=== PATIENT | female | born 1970 | race Caucasian/White ===

== ENCOUNTER 2017-04-06 19:51 | Inpatient (IN) | payer MEDICARE, OTHER ==
[~2017-04-06] VITALS: Ht 172.7 cm; Wt 128.4 kg
[2017-04-06 20:41] LABS: BASO # 0.1 x10^3/uL (0.0-0.2); BASO % 1 % (0-3); EOS % 1 % (0-3); HEMATOCRIT 39.2 % (36.0-47.0); HEMOGLOBIN 13.5 g/dL (12.0-15.5); LYMPH # 3.6 x10^3/uL (1.0-4.8); LYMPH % 37 % (24-48); MEAN CORPUSCULAR HEMOGLOBIN 29 pg (25-35); MEAN CORPUSCULAR HGB CONC 35 g/dL (31-37); MEAN CORPUSCULAR VOLUME 85 fL (79-100); MONO % 6 % (0-9); NEUT % 56 % (31-73); PLATELET COUNT 290 x10^3/uL (140-400); RED BLOOD COUNT 4.63 x10^6/uL (3.50-5.40); RED CELL DISTRIBUTION WIDTH 13.2 % (11.5-14.5)
[2017-04-06 20:51] LABS: CALCIUM 9.3 mg/dL (8.5-10.1); CREATININE 0.9 mg/dL (0.6-1.0); POTASSIUM 3.4 mmol/L (3.5-5.1)
[2017-04-06 20:57] LABS: ALBUMIN 3.5 g/dL (3.4-5.0); ALBUMIN/GLOBULIN RATIO 0.8 (1.0-1.7); C-REACTIVE PROTEIN 7.4 mg/L (0-3.3); TOTAL BILIRUBIN 0.4 mg/dL (0.2-1.0); TOTAL PROTEIN 7.7 g/dL (6.4-8.2)
[2017-04-06] MEDS: fentaNYL PF VIAL 100 MCG/2 ML VIAL IV PRN ×3 (21:02→22:43)
--- NOTE | 2017-04-06 21:51 | PHYS DOC ---
Past Medical History Past Medical History: Endometriosis, Fibromyalgia, IBS, Migraines, Other Additional Past Medical Histor: vernell, chronic fatigue,chronic pain synd.,non- epilepticevents,gastroparesis, Past Surgical History: Cholecystectomy, Hysterectomy Additional Past Surgical Histo: addl med hx;plantar facia, surg:parapesphageal& heital hernia repair,shoulde Alcohol Use: None Drug Use: None Adult General Chief Complaint Chief Complaint: BACK PAIN - NO INJURY HPI HPI Patient is a 46 year old female who is sent to the ED by Dr. Helton, her physician at [place]. The patient is having worsening intractable back pain. She is in a wheelchair from back pain. He has been trying outpatient pain management and physical therapy and is not getting anywhere with that. He tells me that her pain and disability is getting worse. He had considered trying to get her into inpatient rehabilitation of some sort but they will not take her directly, she needs to be a medical inpatient first. History from the patient and her : is retired . Patient states that her chronic back pain has kept her pretty much in bed for a year and a half. It's been worse for about the last 6 weeks. It's been attributed to muscle spasm. She has had home health and home physical therapy but she just cannot cooperate with any rehabilitation. She states she cannot even put on her underwear. She has had worsening fatigue and weakness. She has seen Dr. Shoemaker, pain management, and had her first round of "pre-shots" on the right side and is scheduled for another first round of pre-injections on the left side. The patient has been seen at the [facility] 3 times. She did complete an outpatient 21 day pain program through the [facility]. She's been diagnosed with "chronic pain syndrome, fibromyalgia" also has a seizure disorder, her seizures affect her speech and her right leg. Patient is not aware of anything that happened to cause her to have worsening over the past 6 weeks. She does use fentanyl patches for pain. PCP Dr. Helton at [facility] Review of Systems Review of Systems Constitutional: Denies fever or chills [] Eyes: Denies change in visual acuity, redness, or eye pain [] HENT: Denies nasal congestion or sore throat [] Respiratory: Denies cough or shortness of breath [] Cardiovascular: Denies chest pain GI: Denies abdominal pain, nausea, vomiting, bloody stools or diarrhea [] : Denies dysuria or hematuria [] Musculoskeletal: As in history of present illness Integument: Denies rash or skin lesions [] Neurologic: As in history of present illness for history of seizure disorder Current Medications Current Medications Current Medications Medications (Trade) Dose Ordered Sig/Cindy Start Time Stop Time Status Last Admin Dose Admin Fentanyl Citrate (Fentanyl 2ml Vial) 50 mcg PRN Q15MIN PRN 04/06/17 20:45 04/07/17 20:44 04/06/17 21:38 50 MCG Allergies Allergies Allergies Coded Allergies Type Severity Reaction Last Updated Verified Sulfa (Sulfonamide Antibiotics) Allergy Unknown 04/06/17 Yes codeine Allergy Unknown 04/06/17 Yes eletriptan Allergy Unknown 04/06/17 Yes iohexol Allergy Unknown 04/06/17 Yes levofloxacin Allergy Unknown 04/06/17 Yes meperidine Allergy Unknown 04/06/17 Yes methadone Allergy Unknown 04/06/17 Yes metoclopramide Allergy Unknown 04/06/17 Yes tizanidine Allergy Unknown 04/06/17 Yes topiramate Allergy Unknown 04/06/17 Yes tramadol Allergy Unknown 04/06/17 Yes triamcinolone Allergy Unknown 04/06/17 Yes Uncoded Allergies Type Severity Reaction Last Updated Verified anesthetics Adverse Reaction Severe 04/06/17 Physical Exam Physical Exam Constitutional: Obese female, alert, mentating normally, normal speech, appears to be very uncomfortable, she is able to sit up on the cart for me to look at her back HENT: Normocephalic, atraumatic, bilateral external ears normal, nose normal. [] Eyes: conjunctiva normal, no discharge. [] Neck: Normal range of motion, no tenderness, supple, no stridor. [] Cardiovascular:Heart rate regular rhythm, no murmur [] Lungs & Thorax: Bilateral breath sounds clear to auscultation [] Abdomen: Bowel sounds normal, soft, no tenderness, no masses, no pulsatile masses. [] Skin: Warm, dry, no erythema, no rash. [] Back: No tenderness, no CVA tenderness. No skin abnormality. No palpable muscle spasm or deformity. Extremities: No tenderness, no cyanosis, no clubbing, ROM intact, no edema. [] Neurologic: Alert and oriented X 3, normal motor function, normal sensory function, no focal deficits noted. [] Current Patient Data Vital Signs Vital Signs Date Time Temp Pulse Resp B/P (MAP) Pulse Ox O2 Delivery O2 Flow Rate FiO2 04/06/17 21:38 16 96 Room Air 04/06/17 21:37 85 159/96 (117) 04/06/17 19:59 98.7 98.7 Lab Values Laboratory Tests Test 04/06/17 20:10 White Blood Count 10.0 x10^3/uL (4.0-11.0) Red Blood Count 4.63 x10^6/uL (3.50-5.40) Hemoglobin 13.5 g/dL (12.0-15.5) Hematocrit 39.2 % (36.0-47.0) Mean Corpuscular Volume 85 fL (79-100) Mean Corpuscular Hemoglobin 29 pg (25-35) Mean Corpuscular Hemoglobin Concent 35 g/dL (31-37) Red Cell Distribution Width 13.2 % (11.5-14.5) Platelet Count 290 x10^3/uL (140-400) Neutrophils (%) (Auto) 56 % (31-73) Lymphocytes (%) (Auto) 37 % (24-48) Monocytes (%) (Auto) 6 % (0-9) Eosinophils (%) (Auto) 1 % (0-3) Basophils (%) (Auto) 1 % (0-3) Neutrophils # (Auto) 5.6 x10^3uL (1.8-7.7) Lymphocytes # (Auto) 3.6 x10^3/uL (1.0-4.8) Monocytes # (Auto) 0.6 x10^3/uL (0.0-1.1) Eosinophils # (Auto) 0.1 x10^3/uL (0.0-0.7) Basophils # (Auto) 0.1 x10^3/uL (0.0-0.2) Erythrocyte Sedimentation Rate 26 (0-25) H Sodium Level 141 mmol/L (136-145) Potassium Level 3.4 mmol/L (3.5-5.1) L Chloride Level 104 mmol/L (98-107) Carbon Dioxide Level 29 mmol/L (21-32) Anion Gap 8 (6-14) Blood Urea Nitrogen 11 mg/dL (7-20) Creatinine 0.9 mg/dL (0.6-1.0) Estimated GFR (Cockcroft-Gault) 68.0 BUN/Creatinine Ratio 12 (6-20) Glucose Level 98 mg/dL (70-99) Calcium Level 9.3 mg/dL (8.5-10.1) Total Bilirubin 0.4 mg/dL (0.2-1.0) Aspartate Amino Transferase (AST) 38 U/L (15-37) H Alanine Aminotransferase (ALT) 81 U/L (14-59) H Alkaline Phosphatase 111 U/L (46-116) C-Reactive Protein, Quantitative 7.4 mg/L (0-3.3) H Total Protein 7.7 g/dL (6.4-8.2) Albumin 3.5 g/dL (3.4-5.0) Albumin/Globulin Ratio 0.8 (1.0-1.7) L Laboratory Tests 04/06/17 20:10 Laboratory Tests 04/06/17 20:10 EKG EKG [] Radiology/Procedures Radiology/Procedures I did review the results of MRI from July 2016 that is essentially negative for acute findings, I did not order imaging on today's visit [] Course & Med Decision Making Course & Med Decision Making Pertinent Labs and Imaging studies reviewed. (See chart for details) 46-year-old lady with a long history of debilitating back pain states she has been pretty much in bed for a urinary half but is actually worse for the last 6 weeks. She was sent by her primary care doctor with the specific request to admit her to the hospital to make sure that she is fully evaluated in terms of pain management, imaging, possibly neurology, and then see if she can be placed in inpatient rehabilitation. Patient and her understand and agree with this plan. I ordered labs and pain medication. I spoke with Dr. bernal, [facility], who will admit the patient. I wrote bridge orders. [] Dragon Disclaimer Dragon Disclaimer This electronic medical record was generated, in whole or in part, using a voice recognition dictation system. Departure Departure Impression: Primary Impression: Intractable back pain Disposition: ADMITTED INPATIENT Admitting Physician: Suki Bernal Condition: STABLE Referrals: NO PCP (PCP) JERED LANDAVERDE MD April 06, 2017 21:51
--- NOTE | 2017-04-06 22:22 | ACF ---
Admission Forms Criteria BACK PAIN Clinical Indications for Admission to Inpatient Care (Place 'X' for any and all applicable criteria): Admission is indicated for ANY ONE of the following (1)(2)(3)(4)(5)(6): [X ]I. Inpatient admission required rather than observation care (Also use Back Pain: Observation Care as appropriate) because of ANY ONE of the following [X ]a) Severe pain requiring acute inpatient management [ ]b) Immediate inpatient surgery [ ]c) Other condition, treatment or monitoring requiring inpatient admission [ ]II. Spine fracture with significant damage or threat of damage to vertebral column or spinal cord [ ]III. Progressive or severe neurologic deficit [ ]IV. Suspected spinal infection (e.g., epidural abscess, vertebral osteomyelitis)(10) [ ]V. Suspected cause requires inpatient treatment (eg, aortic dissection) [ ]. Cauda equina syndrome as indicated by ANY ONE of the following (9): [ ]a) Bowel dysfunction [ ]b) Bladder dysfunction [ ]c) Saddle anesthesia [ ]d) Neurologic abnormality suggesting cauda equina impingement Extended stay beyond goal length of stay may be needed for (3)(25): [ ]a) Spinal cord compression from stenosis, disk, or tumor (8)(9) [ ]b) Traumatic or pathologic vertebral fracture (33) [ ]c) Vertebral infection(10) [ ]d) Severe pain that is difficult to control [ ]e) Older patients(65 years or older) The original [facility] content created by [employer] has been revised. The portions of the content which have been revised are identified through the use of italic text or in bold, and [facility] has neither reviewed nor approved the modified material. All other unmodified content is copyright [facility]. Please see references footnoted in the original [facility] edition 2016 Admission Criteria Met?: Yes NISHANT MAHMOOD April 06, 2017 22:22
[2017-04-06] MEDS ORDERED: diphenhydrAMINE HCL 25 MG CAPSULE PO PRN (22:45)
[2017-04-06] MEDS ORDERED: SUMAtriptan SUCCINATE 25 MG TABLET PO PRN (22:45)
--- NOTE | 2017-04-06 22:50 | PDOC1 ---
History and Physical Date of Admission Date of Admission DATE: 04/06/17 TIME: 22:41 Identification/Chief Complaint Chief Complaint back pain Problems: Source Source: Chart review, Patient History of Present Illness History of Present Illness Ms. Almanza is a 46 year old female who is sent to the ED by Dr. Helton, her physician at [place]. She is accompanied here by her and school-age child. Admit for intractable back pain, in a wheelchair at home, and has gotten worse with home PT and OT. Pain has been getting worse, she cannot do ADLs now. She reports multiple prior w/u for autoimmune and connective tissue disease, all neg, w/u X2 in [place], and she has been to the [facility]. She was in the FM and pain progam there, 21 day program years ago, where all meds are weaned off and aggressive PT and OT, and she did feel better for a time , but now has worsening pain and remarks that she feels she has "slid back" marked weight gain, and new problems with headaches, prior seizures. Pain was 9/10, then s/p 2 IV fentanyl is 3/10 and her reports this is the best she has looked in a long while. is retired . Patient states that her chronic back pain, and muscle spasm. no fentanyl patch forpain Past Medical History Cardiovascular: No pertinent hx Pulmonary: No pertinent hx CENTRAL NERVOUS SYSTEM: Migraine, Seizure Musculoskeletal: low back pain, Osteoarthritis, Swelling, Stiffness Rheumatologic: Fibromyalgia ENT: No pertinent hx Renal/: No pertinent hx Endocrine: No pertinent hx Family History Family History: No Significant Social History Smoke: No ALCOHOL: none Drugs: None Current Medications Current Medications Current Medications Fentanyl Citrate (Fentanyl 2ml Vial) 50 mcg PRN Q15MIN PRN IV PAIN GREATER THAN 3/10 Last administered on 04/06/17t 21:38; Start 04/06/17 at 20:45; Stop at 23:59 Fentanyl Citrate (Fentanyl 2ml Vial) 50 mcg PRN Q2HR PRN IV PAIN; Start at 22:45; Status UNV Gabapentin (Neurontin) 1,200 mg BID PO ; Start 04/07/17 at 09:00; Status UNV Oxycodone HCl (Roxicodone) 5 mg PRN Q6HRS PRN PO PAIN; Start 04/06/17 at 22:45 ; Status UNV Potassium Chloride (Klor-Con) 20 meq 1X ONCE PO ; Start 04/06/17 at 22:45; Stop 04/06/17 at 22:46; Status UNV Potassium Chloride (Klor-Con) 20 meq DAILYWBKFT PO ; Start 04/07/17 at 08:00; Status UNV Magnesium Sulfate/ Dextrose 50 ml @ 25 mls/hr 1X ONCE IV ; Start 04/06/17 at 22 :45; Stop 04/07/17 at 00:44; Status UNV Allergies Allergies: Coded Allergies: Sulfa (Sulfonamide Antibiotics) (Verified Allergy, Unknown, 04/06/17) codeine (Verified Allergy, Unknown, 04/06/17) disoriented, vomiting eletriptan (Verified Allergy, Unknown, 04/06/17) cp, pressure in throat weakness in arms iohexol (Verified Allergy, Unknown, 04/06/17) swelling in throat, chest tightness levofloxacin (Verified Allergy, Unknown, 04/06/17) severe joint pain, severe swelling, weight gain 40 lbs in 2.5 months meperidine (Verified Allergy, Unknown, 04/06/17) forget to breath methadone (Verified Allergy, Unknown, 04/06/17) cp, in and out of conscienceness, disorietation metoclopramide (Verified Allergy, Unknown, 04/06/17) difficutly breathing, cp tizanidine (Verified Allergy, Unknown, 04/06/17) disorientatin, instability topiramate (Verified Allergy, Unknown, 04/06/17) severe neuropathy tramadol (Verified Allergy, Unknown, 04/06/17) interferes with sleep, nausea triamcinolone (Verified Allergy, Unknown, 04/06/17) muscle deterioration Uncoded Allergies: anesthetics (Adverse Reaction, Severe, 04/06/17) stop breathing, when monitorad and caution used oxygen and nausea med have done fine ROS General: YES: Fatigue, Malaise, Appetite, Other, No: Chills, Night Sweats PSYCHOLOGICAL ROS: YES: Irritablity, Sleep disturbances Eyes: No Blurry vision, No Decreased vision, No Double vision, No Dry eyes, No Excessive tearing, No Eye Pain, No Itchy Eyes, No Loss of vision, No Photophobia , No Scotomata, No Uses contacts, No Uses glasses, No Other HEENT: YES: Heacaches, No: Visual Changes, Hearing change, Nasal congestion, Nasal discharge, Oral lesions, Sinus pain, Sore Throat, Epistaxis, Sneezing, Snoring, Tinnitus, Vertigo, Vocal changes, Other Respiratory: No: Cough, Hemoptysis, Orthopnea, Pleuritic Pain, Shortness of breath, SOB with excertion, Sputum Changes, Stridor, Tachypnea, Wheezing, Other Cardiovascular: No Chest Pain, No Palpitations, No Orthopnea, No Paroxysmal Noc. Dyspnea, No Edema, No Lt Headedness, No Other Gastrointestinal: No Nausea, No Vomiting, No Abdominal Pain, No Diarrhea, No Constipation, No Melena, No Hematochezia, No Other Genitourinary: No Dysuria, No Frequency, No Incontinence, No Hematuria, No Retention, No Discharge, No Urgency, No Pain, No Flank Pain, No Other, No , No , No , No , No , No , No Musculoskeletal: Yes Gait Disturbance, Yes Joint Pain, Yes Joint Stiffness, Yes Joint Swelling, Yes Muscle Pain, Yes Muscular Weakness, Yes Pain In:, No Swelling In:, No Other Neurological: Yes Gait Disturbance, Yes Headaches, No Behavorial Changes, No Bowel/Bladder ControlChng, No Confusion, No Dizziness, No Impaired Coord/balance, No Memory Loss, No Numbness/Tingling, No Seizures, No Speech Problems, No Tremors, No Visual Changes, No Weakness, No Other Skin: No Dry Skin, No Eczema, No Hair Changes, No Lumps, No Mole Changes, No Mottling, No Nail Changes, No Pruritus, No Rash, No Skin Lesion Changes, No Other, No Acne Physical Exam General: Alert, Oriented X3, Cooperative, mild distress, moderate distress HEENT: Atraumatic, PERRLA, EOMI, Mucous membr. moist/pink Lungs: Clear to auscultation, Normal air movement Heart: S1S2, no gallops, no murmurs Abdomen: Normal bowel sounds, Soft (obese) Rectal Exam: not examined Extremities: No clubbing, No cyanosis Skin: No breakdown, No significant lesion, Other (erythematous arms and face) Neuro: Normal tone, Sensation intact, Cranial nerves 3-12 NL Psych/Mental Status: Mood NL, Other Vitals Vitals Vital Signs Date Time Temp Pulse Resp B/P (MAP) Pulse Ox O2 Delivery O2 Flow Rate FiO2 04/06/17 21:38 16 96 Room Air 04/06/17 21:37 85 159/96 (117) 04/06/17 19:59 98.7 98.7 Labs Labs Laboratory Tests Test 04/06/17 20:10 White Blood Count 10.0 x10^3/uL (4.0-11.0) Red Blood Count 4.63 x10^6/uL (3.50-5.40) Hemoglobin 13.5 g/dL (12.0-15.5) Hematocrit 39.2 % (36.0-47.0) Mean Corpuscular Volume 85 fL (79-100) Mean Corpuscular Hemoglobin 29 pg (25-35) Mean Corpuscular Hemoglobin Concent 35 g/dL (31-37) Red Cell Distribution Width 13.2 % (11.5-14.5) Platelet Count 290 x10^3/uL (140-400) Neutrophils (%) (Auto) 56 % (31-73) Lymphocytes (%) (Auto) 37 % (24-48) Monocytes (%) (Auto) 6 % (0-9) Eosinophils (%) (Auto) 1 % (0-3) Basophils (%) (Auto) 1 % (0-3) Neutrophils # (Auto) 5.6 x10^3uL (1.8-7.7) Lymphocytes # (Auto) 3.6 x10^3/uL (1.0-4.8) Monocytes # (Auto) 0.6 x10^3/uL (0.0-1.1) Eosinophils # (Auto) 0.1 x10^3/uL (0.0-0.7) Basophils # (Auto) 0.1 x10^3/uL (0.0-0.2) Erythrocyte Sedimentation Rate 26 (0-25) Sodium Level 141 mmol/L (136-145) Potassium Level 3.4 mmol/L (3.5-5.1) Chloride Level 104 mmol/L (98-107) Carbon Dioxide Level 29 mmol/L (21-32) Anion Gap 8 (6-14) Blood Urea Nitrogen 11 mg/dL (7-20) Creatinine 0.9 mg/dL (0.6-1.0) Estimated GFR (Cockcroft-Gault) 68.0 BUN/Creatinine Ratio 12 (6-20) Glucose Level 98 mg/dL (70-99) Calcium Level 9.3 mg/dL (8.5-10.1) Total Bilirubin 0.4 mg/dL (0.2-1.0) Aspartate Amino Transf (AST/SGOT) 38 U/L (15-37) Alanine Aminotransferase (ALT/SGPT) 81 U/L (14-59) Alkaline Phosphatase 111 U/L (46-116) C-Reactive Protein, Quantitative 7.4 mg/L (0-3.3) Total Protein 7.7 g/dL (6.4-8.2) Albumin 3.5 g/dL (3.4-5.0) Albumin/Globulin Ratio 0.8 (1.0-1.7) Laboratory Tests Test 04/06/17 20:10 White Blood Count 10.0 x10^3/uL (4.0-11.0) Red Blood Count 4.63 x10^6/uL (3.50-5.40) Hemoglobin 13.5 g/dL (12.0-15.5) Hematocrit 39.2 % (36.0-47.0) Mean Corpuscular Volume 85 fL (79-100) Mean Corpuscular Hemoglobin 29 pg (25-35) Mean Corpuscular Hemoglobin Concent 35 g/dL (31-37) Red Cell Distribution Width 13.2 % (11.5-14.5) Platelet Count 290 x10^3/uL (140-400) Neutrophils (%) (Auto) 56 % (31-73) Lymphocytes (%) (Auto) 37 % (24-48) Monocytes (%) (Auto) 6 % (0-9) Eosinophils (%) (Auto) 1 % (0-3) Basophils (%) (Auto) 1 % (0-3) Neutrophils # (Auto) 5.6 x10^3uL (1.8-7.7) Lymphocytes # (Auto) 3.6 x10^3/uL (1.0-4.8) Monocytes # (Auto) 0.6 x10^3/uL (0.0-1.1) Eosinophils # (Auto) 0.1 x10^3/uL (0.0-0.7) Basophils # (Auto) 0.1 x10^3/uL (0.0-0.2) Erythrocyte Sedimentation Rate 26 (0-25) Sodium Level 141 mmol/L (136-145) Potassium Level 3.4 mmol/L (3.5-5.1) Chloride Level 104 mmol/L (98-107) Carbon Dioxide Level 29 mmol/L (21-32) Anion Gap 8 (6-14) Blood Urea Nitrogen 11 mg/dL (7-20) Creatinine 0.9 mg/dL (0.6-1.0) Estimated GFR (Cockcroft-Gault) 68.0 BUN/Creatinine Ratio 12 (6-20) Glucose Level 98 mg/dL (70-99) Calcium Level 9.3 mg/dL (8.5-10.1) Total Bilirubin 0.4 mg/dL (0.2-1.0) Aspartate Amino Transf (AST/SGOT) 38 U/L (15-37) Alanine Aminotransferase (ALT/SGPT) 81 U/L (14-59) Alkaline Phosphatase 111 U/L (46-116) C-Reactive Protein, Quantitative 7.4 mg/L (0-3.3) Total Protein 7.7 g/dL (6.4-8.2) Albumin 3.5 g/dL (3.4-5.0) Albumin/Globulin Ratio 0.8 (1.0-1.7) VTE Prophylaxis Ordered VTE Prophylaxis Devices: Yes VTE Pharmacological Prophylaxi: No Assessment/Plan Assessment/Plan back pain, debilitating, cannot do ADLs fibromyalgia acute on chronic pain syndrome NOS headache, reports migrane GERBER and seizure do morbid obesity, BMI 43 hypokalemia admit HAIDER SALMON MD April 06, 2017 22:50
[2017-04-06 23:00] VITALS: BP 148/102
[2017-04-06] MEDS ORDERED: MAGNESIUM SULFATE 2GM 50 ML IV ONE (23:00)
[2017-04-06] MEDS ORDERED: POTASSIUM CHLORIDE 20 MEQ TABLET.ER. PO ONE (23:00)
[2017-04-06] MEDS: ZOLPIDEM 5 MG TABLET. PO PRN (23:14)
[2017-04-07] MEDS ORDERED: CELE200C PO (00:07)
[2017-04-07] MEDS ORDERED: ASPI-482 PO (00:07)
[2017-04-07] MEDS ORDERED: CETI10TA22 PO (00:07)
[2017-04-07] MEDS ORDERED: CLON1TAB PO (00:07)
[2017-04-07] MEDS ORDERED: HYDR25TA PO (00:07)
[2017-04-07] MEDS ORDERED: CALC-95 PO (00:07)
[2017-04-07] MEDS ORDERED: ZOLP12.52 PO (00:07)
[2017-04-07] MEDS ORDERED: METH-37 PO (00:07)
[2017-04-07] MEDS ORDERED: ONDA4TAB7 PO (00:07)
[2017-04-07] MEDS ORDERED: DEXT20TA2 PO (00:07)
[2017-04-07] MEDS ORDERED: MELA5CAP PO (00:07)
[2017-04-07] MEDS ORDERED: DOCU-27 PO (00:07)
[2017-04-07] MEDS ORDERED: ATOR10TA PO (00:07)
[2017-04-07] MEDS ORDERED: GABA600T2 PO (00:07)
[2017-04-07] MEDS ORDERED: ESOM40CA PO (00:07)
[2017-04-07] MEDS ORDERED: VERA240C2 PO (00:07)
[2017-04-07] MEDS ORDERED: VENL150C PO (00:07)
[2017-04-07] MEDS ORDERED: CHOL100017 PO (00:07)
[2017-04-07] MEDS ORDERED: LEVO50TA5 PO (00:07)
[2017-04-07] MEDS ORDERED: LEVE100020 PO (00:07)
[2017-04-07] MEDS ORDERED: PENT100C PO (00:07)
[2017-04-07] MEDS ORDERED: LINA290C PO (00:07)
[2017-04-07] MEDS ORDERED: RANI300T3 PO (00:07)
[2017-04-07] MEDS ORDERED: RISP0.5T18 PO (00:07)
[2017-04-07] MEDS ORDERED: FENT1PAT19 TP (00:07)
[2017-04-07] MEDS: fentaNYL PF VIAL 100 MCG/2 ML VIAL IV PRN ×7 (02:20→20:29)
[2017-04-07 03:00] VITALS: BP_SYST 129; BP_SYST 130; BP_DIAS 61; BP_DIAS 81
[2017-04-07 07:00] VITALS: BP 120/75
[2017-04-07] MEDS: GABAPENTIN 400 MG CAPSULE. PO SCH ×2 (08:13→20:35)
[2017-04-07] MEDS: ENOXAPARIN 40 MG/0.4 ML SYRINGE. SQ SCH ×2 (08:14→20:39)
[2017-04-07] MEDS: POTASSIUM CHLORIDE 20 MEQ TABLET.ER. PO SCH (08:14)
[2017-04-07] MEDS ORDERED: ENOXAPARIN 40 MG/0.4 ML SYRINGE. SQ SCH (09:00)
[2017-04-07] MEDS ORDERED: NON FORMULARY ITEM (Melatonin 10 MG) PO PRN (09:30)
[2017-04-07] MEDS ORDERED: clonazePAM 1 MG TABLET PO PRN (09:30)
[2017-04-07] MEDS ORDERED: ONDANSETRON ODT 4 MG TAB.RAPDIS. PO PRN (09:45)
[2017-04-07] MEDS ORDERED: hydrOXYzine 10 MG TABLET PO PRN (09:45)
[2017-04-07] MEDS: PANTOPRAZOLE 40 MG TABLET.DR. PO SCH (09:47)
[2017-04-07] MEDS: LEVOTHYROXINE 50 MCG TABLET PO SCH (09:48)
[2017-04-07] MEDS: VENLAFAXINE 50 MG TABLET. PO SCH ×3 (09:54→20:36)
[2017-04-07] MEDS: CALCIUM CARB/VIT D3 500/200 TABLET. PO SCH (09:54)
[2017-04-07] MEDS: CELECOXIB 200 MG CAPSULE. PO SCH (09:54)
[2017-04-07] MEDS: FAMOTIDINE 20 MG TABLET. PO SCH (09:54)
[2017-04-07] MEDS: LINACLOTIDE 145 MCG CAPSULE. PO SCH (09:54)
[2017-04-07] MEDS ORDERED: CETIRIZINE HCL 10 MG TABLET. PO SCH (10:00)
[2017-04-07] MEDS ORDERED: PANTOPRAZOLE 40 MG TABLET.DR. PO SCH (10:00)
[2017-04-07] MEDS ORDERED: ASPIRIN ENTERIC COATED 81 MG TABLET.DR. PO SCH (10:00)
--- NOTE | 2017-04-07 10:57 | PDOC ---
PROGRESS NOTES Chief Complaint Chief Complaint cc: back pain A/P Acute on chronic back pain: on Fentanyl patch, controlled, PT/OT Dr Sanjay clarke, consult Dr Lobo Migraines: Not controlled, continue home regimen, consult Neurology CHRIS,: on CPAP HTN Obesity. History of Present Illness History of Present Illness pain 06/30, not controlled, Vitals Vitals Vital Signs Date Time Temp Pulse Resp B/P (MAP) Pulse Ox O2 Delivery O2 Flow Rate FiO2 04/07/17 08:50 Room Air 04/07/17 07:00 97.9 89 20 120/75 (90) 95 97.9 Physical Exam General: Alert, Oriented X3, Cooperative, mild distress, moderate distress, Other (obese.) Heart: Normal S1, Normal S2 Lungs: Clear Abdomen: Normal bowel sounds, Soft (obese) Extremities: No clubbing, No cyanosis Skin: No breakdown, No significant lesion, Other (erythematous arms and face) Labs LABS Laboratory Tests Test 04/06/17 20:10 White Blood Count 10.0 x10^3/uL (4.0-11.0) Red Blood Count 4.63 x10^6/uL (3.50-5.40) Hemoglobin 13.5 g/dL (12.0-15.5) Hematocrit 39.2 % (36.0-47.0) Mean Corpuscular Volume 85 fL (79-100) Mean Corpuscular Hemoglobin 29 pg (25-35) Mean Corpuscular Hemoglobin Concent 35 g/dL (31-37) Red Cell Distribution Width 13.2 % (11.5-14.5) Platelet Count 290 x10^3/uL (140-400) Neutrophils (%) (Auto) 56 % (31-73) Lymphocytes (%) (Auto) 37 % (24-48) Monocytes (%) (Auto) 6 % (0-9) Eosinophils (%) (Auto) 1 % (0-3) Basophils (%) (Auto) 1 % (0-3) Neutrophils # (Auto) 5.6 x10^3uL (1.8-7.7) Lymphocytes # (Auto) 3.6 x10^3/uL (1.0-4.8) Monocytes # (Auto) 0.6 x10^3/uL (0.0-1.1) Eosinophils # (Auto) 0.1 x10^3/uL (0.0-0.7) Basophils # (Auto) 0.1 x10^3/uL (0.0-0.2) Erythrocyte Sedimentation Rate 26 (0-25) Sodium Level 141 mmol/L (136-145) Potassium Level 3.4 mmol/L (3.5-5.1) Chloride Level 104 mmol/L (98-107) Carbon Dioxide Level 29 mmol/L (21-32) Anion Gap 8 (6-14) Blood Urea Nitrogen 11 mg/dL (7-20) Creatinine 0.9 mg/dL (0.6-1.0) Estimated GFR (Cockcroft-Gault) 68.0 BUN/Creatinine Ratio 12 (6-20) Glucose Level 98 mg/dL (70-99) Calcium Level 9.3 mg/dL (8.5-10.1) Total Bilirubin 0.4 mg/dL (0.2-1.0) Aspartate Amino Transf (AST/SGOT) 38 U/L (15-37) Alanine Aminotransferase (ALT/SGPT) 81 U/L (14-59) Alkaline Phosphatase 111 U/L (46-116) C-Reactive Protein, Quantitative 7.4 mg/L (0-3.3) Total Protein 7.7 g/dL (6.4-8.2) Albumin 3.5 g/dL (3.4-5.0) Albumin/Globulin Ratio 0.8 (1.0-1.7) Comment Review of Relevant I have reviewed the following items mohsen (where applicable) has been applied. Labs Laboratory Tests Test 04/06/17 20:10 White Blood Count 10.0 x10^3/uL (4.0-11.0) Red Blood Count 4.63 x10^6/uL (3.50-5.40) Hemoglobin 13.5 g/dL (12.0-15.5) Hematocrit 39.2 % (36.0-47.0) Mean Corpuscular Volume 85 fL (79-100) Mean Corpuscular Hemoglobin 29 pg (25-35) Mean Corpuscular Hemoglobin Concent 35 g/dL (31-37) Red Cell Distribution Width 13.2 % (11.5-14.5) Platelet Count 290 x10^3/uL (140-400) Neutrophils (%) (Auto) 56 % (31-73) Lymphocytes (%) (Auto) 37 % (24-48) Monocytes (%) (Auto) 6 % (0-9) Eosinophils (%) (Auto) 1 % (0-3) Basophils (%) (Auto) 1 % (0-3) Neutrophils # (Auto) 5.6 x10^3uL (1.8-7.7) Lymphocytes # (Auto) 3.6 x10^3/uL (1.0-4.8) Monocytes # (Auto) 0.6 x10^3/uL (0.0-1.1) Eosinophils # (Auto) 0.1 x10^3/uL (0.0-0.7) Basophils # (Auto) 0.1 x10^3/uL (0.0-0.2) Erythrocyte Sedimentation Rate 26 (0-25) Sodium Level 141 mmol/L (136-145) Potassium Level 3.4 mmol/L (3.5-5.1) Chloride Level 104 mmol/L (98-107) Carbon Dioxide Level 29 mmol/L (21-32) Anion Gap 8 (6-14) Blood Urea Nitrogen 11 mg/dL (7-20) Creatinine 0.9 mg/dL (0.6-1.0) Estimated GFR (Cockcroft-Gault) 68.0 BUN/Creatinine Ratio 12 (6-20) Glucose Level 98 mg/dL (70-99) Calcium Level 9.3 mg/dL (8.5-10.1) Total Bilirubin 0.4 mg/dL (0.2-1.0) Aspartate Amino Transf (AST/SGOT) 38 U/L (15-37) Alanine Aminotransferase (ALT/SGPT) 81 U/L (14-59) Alkaline Phosphatase 111 U/L (46-116) C-Reactive Protein, Quantitative 7.4 mg/L (0-3.3) Total Protein 7.7 g/dL (6.4-8.2) Albumin 3.5 g/dL (3.4-5.0) Albumin/Globulin Ratio 0.8 (1.0-1.7) Laboratory Tests Test 04/06/17 20:10 White Blood Count 10.0 x10^3/uL (4.0-11.0) Red Blood Count 4.63 x10^6/uL (3.50-5.40) Hemoglobin 13.5 g/dL (12.0-15.5) Hematocrit 39.2 % (36.0-47.0) Mean Corpuscular Volume 85 fL (79-100) Mean Corpuscular Hemoglobin 29 pg (25-35) Mean Corpuscular Hemoglobin Concent 35 g/dL (31-37) Red Cell Distribution Width 13.2 % (11.5-14.5) Platelet Count 290 x10^3/uL (140-400) Neutrophils (%) (Auto) 56 % (31-73) Lymphocytes (%) (Auto) 37 % (24-48) Monocytes (%) (Auto) 6 % (0-9) Eosinophils (%) (Auto) 1 % (0-3) Basophils (%) (Auto) 1 % (0-3) Neutrophils # (Auto) 5.6 x10^3uL (1.8-7.7) Lymphocytes # (Auto) 3.6 x10^3/uL (1.0-4.8) Monocytes # (Auto) 0.6 x10^3/uL (0.0-1.1) Eosinophils # (Auto) 0.1 x10^3/uL (0.0-0.7) Basophils # (Auto) 0.1 x10^3/uL (0.0-0.2) Erythrocyte Sedimentation Rate 26 (0-25) Sodium Level 141 mmol/L (136-145) Potassium Level 3.4 mmol/L (3.5-5.1) Chloride Level 104 mmol/L (98-107) Carbon Dioxide Level 29 mmol/L (21-32) Anion Gap 8 (6-14) Blood Urea Nitrogen 11 mg/dL (7-20) Creatinine 0.9 mg/dL (0.6-1.0) Estimated GFR (Cockcroft-Gault) 68.0 BUN/Creatinine Ratio 12 (6-20) Glucose Level 98 mg/dL (70-99) Calcium Level 9.3 mg/dL (8.5-10.1) Total Bilirubin 0.4 mg/dL (0.2-1.0) Aspartate Amino Transf (AST/SGOT) 38 U/L (15-37) Alanine Aminotransferase (ALT/SGPT) 81 U/L (14-59) Alkaline Phosphatase 111 U/L (46-116) C-Reactive Protein, Quantitative 7.4 mg/L (0-3.3) Total Protein 7.7 g/dL (6.4-8.2) Albumin 3.5 g/dL (3.4-5.0) Albumin/Globulin Ratio 0.8 (1.0-1.7) Medications Current Medications Fentanyl Citrate (Fentanyl 2ml Vial) 50 mcg PRN Q15MIN PRN IV PAIN GREATER THAN 3/10 Last administered on 04/06/17 22:43; Start 04/06/17 at 20:45; Stop at 23:59 Fentanyl Citrate (Fentanyl 2ml Vial) 50 mcg PRN Q2HR PRN IV PAIN Last administered on 04/07/17 08:15; Start 04/06/17 at 22:45 Gabapentin (Neurontin) 1,200 mg BID PO Last administered on 04/07/17 08:13; Start 04/07/17 at 09:00 Oxycodone HCl (Roxicodone) 5 mg PRN Q6HRS PRN PO PAIN; Start 04/06/17 at 22:45 Potassium Chloride (Klor-Con) 20 meq 1X ONCE PO Last administered on 23:15; Start 04/06/17 at 23:00; Stop 04/06/17 at 23:01; Status DC Potassium Chloride (Klor-Con) 20 meq DAILYWBKFT PO Last administered on 08:14; Start 04/07/17 at 08:00 Magnesium Sulfate/ Dextrose 50 ml @ 25 mls/hr 1X ONCE IV Last administered on 04/06/17 23:32; Start 04/06/17 at 23:00; Stop 04/07/17 at 00:59; Status DC Diphenhydramine HCl (Benadryl) 25 mg PRN Q6HRS PRN PO ITCHING; Start 04/06/17 at 22:45 Zolpidem Tartrate (Ambien) 5 mg PRN QHS PRN PO INSOMNIA Last administered on 23:14; Start 04/06/17 at 22:45 Enoxaparin Sodium (Lovenox Per Pharmacy Prophylaxis Dosing) 1 each PRN DAILY PRN MC SEE COMMENTS; Start 04/06/17 at 23:00 Sumatriptan Succinate (Imitrex) 50 mg PRN Q2HR PRN PO MIGRAINE HEADACHE Last administered on 04/07/17 09:27; Start 04/06/17 at 22:45 Cyclobenzaprine HCl (Flexeril) 10 mg PRN Q6HRS PRN PO MUSCLE SPASMS; Start at 22:45 Enoxaparin Sodium (Lovenox 40mg Syringe) 40 mg DAILY SQ ; Start 04/07/17 at 09: 00; Stop 04/07/17 at 09:00; Status DC Enoxaparin Sodium (Lovenox 40mg Syringe) 40 mg Q12HR SQ Last administered on 08:14; Start 04/07/17 at 09:00 Aspirin (Ecotrin) 81 mg DAILYWBKFT PO ; Start 04/07/17 at 10:00; Stop 04/07/17 at 10:03; Status DC Atorvastatin Calcium (Lipitor) 10 mg QHS PO ; Start 04/07/17 at 21:00 Calcium/Vitamin D (Oscal D 500mg/ 200uts) 1 tab DAILY PO Last administered on 09:54; Start 04/07/17 at 10:00 Celecoxib (CeleBREX) 200 mg DAILY PO Last administered on 04/07/17 09:54; Start 04/07/17 at 10:00 Cetirizine HCl (ZyrTEC) 10 mg DAILY PO ; Start 04/07/17 at 10:00; Stop 04/07/17 at 10:03; Status DC Clonazepam (KlonoPIN) 1 mg TID PRN PO ANXIETY; Start 04/07/17 at 09:30 Docusate Sodium (Colace) 100 mg TID PRN PRN PO CONSTIPATION; Start 04/07/17 at 09:30 Fentanyl (Duragesic 75mcg/ Hr Patch) 1 patch Q3DAYS TD ; Start 04/08/17 at 09:00 Levothyroxine Sodium (Synthroid) 50 mcg DAILY07 PO ; Start 04/07/17 at 10:00 Methocarbamol (Robaxin) 500 mg Q8HRS PRN PO PAIN; Start 04/07/17 at 09:30 Non-Formulary Medication 1 ea TID PO ; Start 04/07/17 at 11:00 Non-Formulary Medication 20 mg DAILY PO ; Start 04/08/17 at 09:00; Status UNV Pantoprazole Sodium (Protonix) 40 mg DAILYAC PO ; Start 04/07/17 at 10:00; Stop 04/07/17 at 10:00; Status DC Hydroxyzine HCl (Atarax) 25 mg PRN TID PRN PO ITCHING; Start 04/07/17 at 09:45 Levetiracetam (Keppra) 1,000 mg BID PO ; Start 04/07/17 at 10:30 Linaclotide (Linzess) 290 mcg DAILY07 PO Last administered on 04/07/17 09:54; Start 04/07/17 at 10:00 Non-Formulary Medication 10 mg HS PRN PO INSOMNIA; Start 04/07/17 at 09:30; Status UNV Ondansetron HCl (Zofran Odt) 4 mg PRN Q8HRS PRN PO NAUSEA; Start 04/07/17 at 09 :45 Famotidine (Pepcid) 20 mg DAILY06 PO Last administered on 04/07/17 09:54; Start 04/07/17 at 10:00 Risperidone (RisperDAL) 0.5 mg QHS PO ; Start 04/07/17 at 21:00 Venlafaxine HCl (Effexor) 50 mg TID PO Last administered on 04/07/17 09:54; Start 04/07/17 at 09:45 Verapamil HCl (Calan Sr) 180 mg QHS PO ; Start 04/07/17 at 21:00 Zolpidem Tartrate (Ambien) 5 mg QHS PO ; Start 04/07/17 at 21:00 Pantoprazole Sodium (Protonix) 40 mg DAILY06 PO ; Start 04/07/17 at 10:00 Aspirin (Ecotrin) 81 mg HS PO ; Start 04/07/17 at 21:00 Cetirizine HCl (ZyrTEC) 10 mg HS PO ; Start 04/07/17 at 21:00 Active Scripts Active Reported Oyster Shell Calcium +D Tablet (Calcium Carbonate/Vitamin D3) 1 Each Tablet 1 Each PO DAILY Lipitor (Atorvastatin Calcium) 10 Mg Tablet 1 Tab PO DAILY Adderall 20 Mg Tablet (Dextroamphetamine/Amphetamine) 20 Mg Tablet 20 Mg PO DAILY Effexor Xr (Venlafaxine Hcl) 150 Mg Cap.er.24h 1 Cap PO DAILY Celebrex (Celecoxib) 200 Mg Capsule 1 Cap PO DAILY Zofran (Ondansetron Hcl) 4 Mg Tablet 1 Tab PO TID PRN PRN Linzess (Linaclotide) 290 Mcg Capsule 290 Mcg PO DAILY Zyrtec (Cetirizine Hcl) 10 Mg Tablet 1 Tab PO DAILY Vitamin D (Cholecalciferol (Vitamin D3)) 10,000 Unit Capsule 50,000 Unit PO QWE Verapamil Er (Verapamil Hcl) 240 Mg Cap24h.pel 180 Mg PO HS Aspir 81 (Aspirin) 81 Mg Tablet.dr 1 Tab PO DAILY Klonopin (Clonazepam) 1 Mg Tablet 1 Tab PO TID PRN Hydroxyzine Hcl 25 Mg Tablet 25 Mg PO Q8HRS PRN Risperdal (Risperidone) 0.5 Mg Tablet 1 Tab PO QHS Ambien Cr (Zolpidem Tartrate) 12.5 Mg Tab.mphase 1 Tab PO QHS Levothyroxine Sodium 50 Mcg Tablet 1 Tab PO DAILY Keppra (Levetiracetam) 1,000 Mg Tablet 2,000 Mg PO DAILY Melatonin 5 Mg Capsule 10 Mg PO HS PRN FENTANYL 75mcg/hr (Fentanyl) 1 Each Patch.td72 1 Patch TP Q3DAYS Colace (Docusate Sodium) 100 Mg Capsule 1 Cap PO TID PRN PRN Robaxin (Methocarbamol) 500 Mg Tablet 1 Tab PO Q8HRS PRN Gabapentin 600 Mg Tablet 1,200 Mg PO BID Zantac (Ranitidine Hcl) 300 Mg Tablet 300 Mg PO DAILY06 Nexium Capsule (Esomeprazole Magnesium) 40 Mg Capsule.dr 1 Cap PO DAILY06 Elmiron (Pentosan Polysulfate Sodium) 100 Mg Capsule 1 Cap PO TID Vitals/I & O Vital Sign - Last 24 Hours 04/06/17 04/06/17 04/06/17 04/06/17 19:59 21:02 21:37 21:38 Temp 98.7 98.7 Pulse 98 85 Resp 18 20 16 16 B/P (MAP) 158/93 (114) 159/96 (117) Pulse Ox 97 95 96 96 O2 Delivery Room Air Room Air Room Air 04/06/17 04/06/17 04/06/17 04/06/17 22:30 22:43 23:00 23:15 Temp 98.4 98.4 Pulse 92 108 Resp 18 20 18 20 B/P (MAP) 163/87 (112) 148/102 (117) Pulse Ox 95 97 96 O2 Delivery Room Air Room Air Room Air Room Air 04/06/17 04/07/17 04/07/17 04/07/17 23:15 02:20 03:00 05:07 Temp 97.7 97.7 Pulse 93 Resp 20 18 20 B/P (MAP) 130/81 (97) Pulse Ox 95 O2 Delivery Room Air BiPAP/CPAP 04/07/17 04/07/17 04/07/17 04/07/17 05:40 07:00 07:35 08:15 Temp 97.9 97.9 Pulse 89 Resp 16 20 B/P (MAP) 120/75 (90) Pulse Ox 95 O2 Delivery Room Air Room Air Room Air 04/07/17 08:50 O2 Delivery Room Air Intake and Output 04/06/17 04/06/17 04/07/17 15:00 23:00 07:00 Intake Total 400 ml Balance 400 ml ARTURO CISSE MD April 07, 2017 10:57
[2017-04-07 11:00] VITALS: BP 137/78
[2017-04-07] MEDS: ELMIRON 100 MG PO SCH ×3 (11:17→20:32)
[2017-04-07] MEDS: levETIRAcetam 500 MG TABLET PO SCH ×2 (11:17→20:41)
--- NOTE | 2017-04-07 14:28 | PDOC ---
SUBJECTIVE Subjective low back pain OBJECTIVE Objective 46yo female with history of increasing low back pain Vital Signs Vital Signs Date Time Temp Pulse Resp B/P (MAP) Pulse Ox O2 Delivery O2 Flow Rate FiO2 04/07/17 11:50 Room Air 04/07/17 11:18 95 Room Air 04/07/17 11:00 98.0 93 20 137/78 (97) 95 Room Air 98.0 04/07/17 08:15 Room Air 04/07/17 07:35 Room Air 04/07/17 07:00 97.9 89 20 120/75 (90) 95 Room Air 97.9 04/07/17 05:40 16 04/07/17 05:07 20 04/07/17 03:00 97.7 93 18 130/81 (97) 95 BiPAP/CPAP 97.7 04/07/17 02:20 20 04/06/17 23:15 Room Air 04/06/17 23:15 20 Room Air 04/06/17 23:00 98.4 108 18 148/102 (117) 96 Room Air 98.4 04/06/17 22:43 20 97 Room Air 04/06/17 22:30 92 18 163/87 (112) 95 Room Air 04/06/17 21:38 16 96 Room Air 04/06/17 21:37 85 16 159/96 (117) 96 Room Air 04/06/17 21:02 20 95 Room Air 04/06/17 19:59 98.7 98 18 158/93 (114) 97 98.7 I & O Intake and Output 04/07/17 07:01 Intake Total 400 ml Balance 400 ml Intake Oral 400 ml # Voids 2 ASSESSMENT/PLAN Assessment/Plan 46y.o. female with history of low back pain, increasing with inability to perform ADL's MRI 07/2016 noted- minimal DDD L5 Pt. reports she is undergoing current treatment with Dr. Patel in [place] and has had lumbar medial branch/facet treatment- and has discussed RFA as possibilty as well- F/U with Dr. Patel as scheduled. Pt. expresses wishes to attend "rehab" for her lumbar spine, as she has done well with aggressive physical rehab in past. Pt. reports significant improvement with IV fentanyl -May consider [employer] Fentanyl as IP (8-10mcg q 8 min, with no basal rate) Problems: COMMENT Lab Laboratory Tests Test 04/06/17 20:10 White Blood Count 10.0 x10^3/uL (4.0-11.0) Red Blood Count 4.63 x10^6/uL (3.50-5.40) Hemoglobin 13.5 g/dL (12.0-15.5) Hematocrit 39.2 % (36.0-47.0) Mean Corpuscular Volume 85 fL (79-100) Mean Corpuscular Hemoglobin 29 pg (25-35) Mean Corpuscular Hemoglobin Concent 35 g/dL (31-37) Red Cell Distribution Width 13.2 % (11.5-14.5) Platelet Count 290 x10^3/uL (140-400) Neutrophils (%) (Auto) 56 % (31-73) Lymphocytes (%) (Auto) 37 % (24-48) Monocytes (%) (Auto) 6 % (0-9) Eosinophils (%) (Auto) 1 % (0-3) Basophils (%) (Auto) 1 % (0-3) Neutrophils # (Auto) 5.6 x10^3uL (1.8-7.7) Lymphocytes # (Auto) 3.6 x10^3/uL (1.0-4.8) Monocytes # (Auto) 0.6 x10^3/uL (0.0-1.1) Eosinophils # (Auto) 0.1 x10^3/uL (0.0-0.7) Basophils # (Auto) 0.1 x10^3/uL (0.0-0.2) Erythrocyte Sedimentation Rate 26 (0-25) Sodium Level 141 mmol/L (136-145) Potassium Level 3.4 mmol/L (3.5-5.1) Chloride Level 104 mmol/L (98-107) Carbon Dioxide Level 29 mmol/L (21-32) Anion Gap 8 (6-14) Blood Urea Nitrogen 11 mg/dL (7-20) Creatinine 0.9 mg/dL (0.6-1.0) Estimated GFR (Cockcroft-Gault) 68.0 BUN/Creatinine Ratio 12 (6-20) Glucose Level 98 mg/dL (70-99) Calcium Level 9.3 mg/dL (8.5-10.1) Total Bilirubin 0.4 mg/dL (0.2-1.0) Aspartate Amino Transf (AST/SGOT) 38 U/L (15-37) Alanine Aminotransferase (ALT/SGPT) 81 U/L (14-59) Alkaline Phosphatase 111 U/L (46-116) C-Reactive Protein, Quantitative 7.4 mg/L (0-3.3) Total Protein 7.7 g/dL (6.4-8.2) Albumin 3.5 g/dL (3.4-5.0) Albumin/Globulin Ratio 0.8 (1.0-1.7) LALO KAY MD April 07, 2017 14:27
[2017-04-07 14:41] VITALS: BP 157/97
--- NOTE | 2017-04-07 14:56 | PDOC2 ---
NEUROLOGY CONSULT Date of Admission Date of Admission DATE: 04/07/17 TIME: 14:50 Reason for Consult Reason for Consult: Headaches Referring Physician Referring Physician: Dr. Bernal PCP: Dr. Helton Source Source: Chart review, Patient History of Present Illness History of Present Illness The patient is a 46-year-old right-handed female with a long history of migraine headaches. She describes throbbing pain with photo phonophobia and nausea. She says that she has been bedfast for a year and a half because of severe back pain. No surgical lesion has been found. She has been diagnosed at the [facility] with fibromyalgia. There is no history of stroke, seizure, or head injury. She received 50 mg of sumatriptan today and says her headache is better, 03/30 Past Medical History Cardiovascular: HTN Pulmonary: Other (obstructive sleep apnea) CENTRAL NERVOUS SYSTEM: Migraine, Seizure (nonepileptic) GI: Constipation, GERD, Irritable bowel disease, Other (gastroparesis, hiatal hernia, nausea) Psych: Depression Musculoskeletal: low back pain Rheumatologic: Fibromyalgia Renal/: Other (endometriosis) Endocrine: Hypothyroidism Past Surgical History Past Surgical History: Cholecystectomy, Hernia Repair (hiatal), Hysterectomy Family History Family History: Cancer Social History Social History , no tobacco or alcohol Current Medications Current Medications Current Medications Fentanyl Citrate (Fentanyl 2ml Vial) 50 mcg PRN Q15MIN PRN IV PAIN GREATER THAN 3/10 Last administered on 04/06/17 22:43; Start 04/06/17 at 20:45; Stop at 23:59 Fentanyl Citrate (Fentanyl 2ml Vial) 50 mcg PRN Q2HR PRN IV PAIN Last administered on 04/07/17 11:18; Start 04/06/17 at 22:45 Gabapentin (Neurontin) 1,200 mg BID PO Last administered on 04/07/17 08:13; Start 04/07/17 at 09:00 Oxycodone HCl (Roxicodone) 5 mg PRN Q6HRS PRN PO PAIN; Start 04/06/17 at 22:45 Potassium Chloride (Klor-Con) 20 meq 1X ONCE PO Last administered on 23:15; Start 04/06/17 at 23:00; Stop 04/06/17 at 23:01; Status DC Potassium Chloride (Klor-Con) 20 meq DAILYWBKFT PO Last administered on 08:14; Start 04/07/17 at 08:00 Magnesium Sulfate/ Dextrose 50 ml @ 25 mls/hr 1X ONCE IV Last administered on 04/06/17 23:32; Start 04/06/17 at 23:00; Stop 04/07/17 at 00:59; Status DC Diphenhydramine HCl (Benadryl) 25 mg PRN Q6HRS PRN PO ITCHING; Start 04/06/17 at 22:45 Zolpidem Tartrate (Ambien) 5 mg PRN QHS PRN PO INSOMNIA Last administered on 23:14; Start 04/06/17 at 22:45 Enoxaparin Sodium (Lovenox Per Pharmacy Prophylaxis Dosing) 1 each PRN DAILY PRN MC SEE COMMENTS; Start 04/06/17 at 23:00 Sumatriptan Succinate (Imitrex) 50 mg PRN Q2HR PRN PO MIGRAINE HEADACHE Last administered on 04/07/17 09:27; Start 04/06/17 at 22:45 Cyclobenzaprine HCl (Flexeril) 10 mg PRN Q6HRS PRN PO MUSCLE SPASMS; Start at 22:45 Enoxaparin Sodium (Lovenox 40mg Syringe) 40 mg DAILY SQ ; Start 04/07/17 at 09: 00; Stop 04/07/17 at 09:00; Status DC Enoxaparin Sodium (Lovenox 40mg Syringe) 40 mg Q12HR SQ Last administered on 08:14; Start 04/07/17 at 09:00 Aspirin (Ecotrin) 81 mg DAILYWBKFT PO ; Start 04/07/17 at 10:00; Stop 04/07/17 at 10:03; Status DC Atorvastatin Calcium (Lipitor) 10 mg QHS PO ; Start 04/07/17 at 21:00 Calcium/Vitamin D (Oscal D 500mg/ 200uts) 1 tab DAILY PO Last administered on 09:54; Start 04/07/17 at 10:00 Celecoxib (CeleBREX) 200 mg DAILY PO Last administered on 04/07/17 09:54; Start 04/07/17 at 10:00 Cetirizine HCl (ZyrTEC) 10 mg DAILY PO ; Start 04/07/17 at 10:00; Stop 04/07/17 at 10:03; Status DC Clonazepam (KlonoPIN) 1 mg TID PRN PO ANXIETY; Start 04/07/17 at 09:30 Docusate Sodium (Colace) 100 mg TID PRN PRN PO CONSTIPATION; Start 04/07/17 at 09:30 Fentanyl (Duragesic 75mcg/ Hr Patch) 1 patch Q3DAYS TD ; Start 04/08/17 at 09:00 Levothyroxine Sodium (Synthroid) 50 mcg DAILY07 PO ; Start 04/07/17 at 10:00 Methocarbamol (Robaxin) 500 mg Q8HRS PRN PO PAIN; Start 04/07/17 at 09:30 Non-Formulary Medication 1 ea TID PO Last administered on 04/07/17 11:17; Start 04/07/17 at 11:00 Non-Formulary Medication 20 mg DAILY PO ; Start 04/08/17 at 09:00; Status UNV Pantoprazole Sodium (Protonix) 40 mg DAILYAC PO ; Start 04/07/17 at 10:00; Stop 04/07/17 at 10:00; Status DC Hydroxyzine HCl (Atarax) 25 mg PRN TID PRN PO ITCHING; Start 04/07/17 at 09:45 Levetiracetam (Keppra) 1,000 mg BID PO Last administered on 04/07/17 11:17; Start 04/07/17 at 10:30 Linaclotide (Linzess) 290 mcg DAILY07 PO Last administered on 04/07/17 09:54; Start 04/07/17 at 10:00 Non-Formulary Medication 10 mg HS PRN PO INSOMNIA; Start 04/07/17 at 09:30; Status UNV Ondansetron HCl (Zofran Odt) 4 mg PRN Q8HRS PRN PO NAUSEA; Start 04/07/17 at 09 :45 Famotidine (Pepcid) 20 mg DAILY06 PO Last administered on 04/07/17 09:54; Start 04/07/17 at 10:00 Risperidone (RisperDAL) 0.5 mg QHS PO ; Start 04/07/17 at 21:00 Venlafaxine HCl (Effexor) 50 mg TID PO Last administered on 04/07/17t 09:54; Start 04/07/17 at 09:45 Verapamil HCl (Calan Sr) 180 mg QHS PO ; Start 04/07/17 at 21:00 Zolpidem Tartrate (Ambien) 5 mg QHS PO ; Start 04/07/17 at 21:00 Pantoprazole Sodium (Protonix) 40 mg DAILY06 PO ; Start 04/07/17 at 10:00 Aspirin (Ecotrin) 81 mg HS PO ; Start 04/07/17 at 21:00 Cetirizine HCl (ZyrTEC) 10 mg HS PO ; Start 04/07/17 at 21:00 Active Scripts Active Reported Oyster Shell Calcium +D Tablet (Calcium Carbonate/Vitamin D3) 1 Each Tablet 1 Each PO DAILY Lipitor (Atorvastatin Calcium) 10 Mg Tablet 1 Tab PO DAILY Adderall 20 Mg Tablet (Dextroamphetamine/Amphetamine) 20 Mg Tablet 20 Mg PO DAILY Effexor Xr (Venlafaxine Hcl) 150 Mg Cap.er.24h 1 Cap PO DAILY Celebrex (Celecoxib) 200 Mg Capsule 1 Cap PO DAILY Zofran (Ondansetron Hcl) 4 Mg Tablet 1 Tab PO TID PRN PRN Linzess (Linaclotide) 290 Mcg Capsule 290 Mcg PO DAILY Zyrtec (Cetirizine Hcl) 10 Mg Tablet 1 Tab PO DAILY Vitamin D (Cholecalciferol (Vitamin D3)) 10,000 Unit Capsule 50,000 Unit PO QWE Verapamil Er (Verapamil Hcl) 240 Mg Cap24h.pel 180 Mg PO HS Aspir 81 (Aspirin) 81 Mg Tablet.dr 1 Tab PO DAILY Klonopin (Clonazepam) 1 Mg Tablet 1 Tab PO TID PRN Hydroxyzine Hcl 25 Mg Tablet 25 Mg PO Q8HRS PRN Risperdal (Risperidone) 0.5 Mg Tablet 1 Tab PO QHS Ambien Cr (Zolpidem Tartrate) 12.5 Mg Tab.mphase 1 Tab PO QHS Levothyroxine Sodium 50 Mcg Tablet 1 Tab PO DAILY Keppra (Levetiracetam) 1,000 Mg Tablet 2,000 Mg PO DAILY Melatonin 5 Mg Capsule 10 Mg PO HS PRN FENTANYL 75mcg/hr (Fentanyl) 1 Each Patch.td72 1 Patch TP Q3DAYS Colace (Docusate Sodium) 100 Mg Capsule 1 Cap PO TID PRN PRN Robaxin (Methocarbamol) 500 Mg Tablet 1 Tab PO Q8HRS PRN Gabapentin 600 Mg Tablet 1,200 Mg PO BID Zantac (Ranitidine Hcl) 300 Mg Tablet 300 Mg PO DAILY06 Nexium Capsule (Esomeprazole Magnesium) 40 Mg Capsule.dr 1 Cap PO DAILY06 Elmiron (Pentosan Polysulfate Sodium) 100 Mg Capsule 1 Cap PO TID Allergies Allergies: Coded Allergies: Sulfa (Sulfonamide Antibiotics) (Verified Allergy, Unknown, 04/06/17) codeine (Verified Allergy, Unknown, 04/06/17) disoriented, vomiting eletriptan (Verified Allergy, Unknown, 04/06/17) cp, pressure in throat weakness in arms iohexol (Verified Allergy, Unknown, 04/06/17) swelling in throat, chest tightness levofloxacin (Verified Allergy, Unknown, 04/06/17) severe joint pain, severe swelling, weight gain 40 lbs in 2.5 months meperidine (Verified Allergy, Unknown, 04/06/17) forget to breath methadone (Verified Allergy, Unknown, 04/06/17) cp, in and out of conscienceness, disorietation metoclopramide (Verified Allergy, Unknown, 04/06/17) difficutly breathing, cp tizanidine (Verified Allergy, Unknown, 04/06/17) disorientatin, instability topiramate (Verified Allergy, Unknown, 04/06/17) severe neuropathy tramadol (Verified Allergy, Unknown, 04/06/17) interferes with sleep, nausea triamcinolone (Verified Allergy, Unknown, 04/06/17) muscle deterioration Uncoded Allergies: anesthetics (Adverse Reaction, Severe, 04/06/17) stop breathing, when monitorad and caution used oxygen and nausea med have done fine ROS Review of System Patient denies fevers, chills, weight loss, dyspnea, angina, abdominal pain, change in bowels, or dysuria. 14 point review of systems is negative. Physical Exam Physical Examination PHYSICAL EXAMINATION: Vital signs: see above. General appearance is normal and in no acute distress. She is asleep when I enter the room HEENT: Normocephalic and nontraumatic. Eyes, nose, ears, and throat are unremarkable. Neck is supple. No lymphadenopathy. No bruits are heard over the carotid artery. No crepitus. NEUROLOGICAL EXAMINATION: Mental Status Examination: Alert. Oriented to time, place, and person. Answers questions and follows commends. Pupils are equal round and reactive to light and accommodation. Funduscopic exam: No papilledema. Extraocular movements are intact. Visual field exam shows no defect on the direct confrontation. No motor or sensory deficits on the facial exam. Uvula in the midline and the soft palate elevated symmetrically. No deviation of the tongue to any direction. Gross hearing is normal. Shoulder shrug normal. Muscle tone is normal. Muscle strength is 5. Deep tendon reflexes are 2+ all around. Plantar reflex is with flexion response bilaterally. Kouhyx-pa-rehf test performance is accurate. Alternative movements are accurate. Gait not tested. Sensory exam shows no deficits. No cerebellar signs are elicited. Vitals VITALS Vital Signs Date Time Temp Pulse Resp B/P (MAP) Pulse Ox O2 Delivery O2 Flow Rate FiO2 04/07/17 14:41 97.8 90 20 157/97 (117) 96 Room Air 97.8 Labs Labs Laboratory Tests Test 04/06/17 20:10 White Blood Count 10.0 x10^3/uL (4.0-11.0) Red Blood Count 4.63 x10^6/uL (3.50-5.40) Hemoglobin 13.5 g/dL (12.0-15.5) Hematocrit 39.2 % (36.0-47.0) Mean Corpuscular Volume 85 fL (79-100) Mean Corpuscular Hemoglobin 29 pg (25-35) Mean Corpuscular Hemoglobin Concent 35 g/dL (31-37) Red Cell Distribution Width 13.2 % (11.5-14.5) Platelet Count 290 x10^3/uL (140-400) Neutrophils (%) (Auto) 56 % (31-73) Lymphocytes (%) (Auto) 37 % (24-48) Monocytes (%) (Auto) 6 % (0-9) Eosinophils (%) (Auto) 1 % (0-3) Basophils (%) (Auto) 1 % (0-3) Neutrophils # (Auto) 5.6 x10^3uL (1.8-7.7) Lymphocytes # (Auto) 3.6 x10^3/uL (1.0-4.8) Monocytes # (Auto) 0.6 x10^3/uL (0.0-1.1) Eosinophils # (Auto) 0.1 x10^3/uL (0.0-0.7) Basophils # (Auto) 0.1 x10^3/uL (0.0-0.2) Erythrocyte Sedimentation Rate 26 (0-25) Sodium Level 141 mmol/L (136-145) Potassium Level 3.4 mmol/L (3.5-5.1) Chloride Level 104 mmol/L (98-107) Carbon Dioxide Level 29 mmol/L (21-32) Anion Gap 8 (6-14) Blood Urea Nitrogen 11 mg/dL (7-20) Creatinine 0.9 mg/dL (0.6-1.0) Estimated GFR (Cockcroft-Gault) 68.0 BUN/Creatinine Ratio 12 (6-20) Glucose Level 98 mg/dL (70-99) Calcium Level 9.3 mg/dL (8.5-10.1) Total Bilirubin 0.4 mg/dL (0.2-1.0) Aspartate Amino Transf (AST/SGOT) 38 U/L (15-37) Alanine Aminotransferase (ALT/SGPT) 81 U/L (14-59) Alkaline Phosphatase 111 U/L (46-116) C-Reactive Protein, Quantitative 7.4 mg/L (0-3.3) Total Protein 7.7 g/dL (6.4-8.2) Albumin 3.5 g/dL (3.4-5.0) Albumin/Globulin Ratio 0.8 (1.0-1.7) Laboratory Tests Test 04/06/17 20:10 White Blood Count 10.0 x10^3/uL (4.0-11.0) Red Blood Count 4.63 x10^6/uL (3.50-5.40) Hemoglobin 13.5 g/dL (12.0-15.5) Hematocrit 39.2 % (36.0-47.0) Mean Corpuscular Volume 85 fL (79-100) Mean Corpuscular Hemoglobin 29 pg (25-35) Mean Corpuscular Hemoglobin Concent 35 g/dL (31-37) Red Cell Distribution Width 13.2 % (11.5-14.5) Platelet Count 290 x10^3/uL (140-400) Neutrophils (%) (Auto) 56 % (31-73) Lymphocytes (%) (Auto) 37 % (24-48) Monocytes (%) (Auto) 6 % (0-9) Eosinophils (%) (Auto) 1 % (0-3) Basophils (%) (Auto) 1 % (0-3) Neutrophils # (Auto) 5.6 x10^3uL (1.8-7.7) Lymphocytes # (Auto) 3.6 x10^3/uL (1.0-4.8) Monocytes # (Auto) 0.6 x10^3/uL (0.0-1.1) Eosinophils # (Auto) 0.1 x10^3/uL (0.0-0.7) Basophils # (Auto) 0.1 x10^3/uL (0.0-0.2) Erythrocyte Sedimentation Rate 26 (0-25) Sodium Level 141 mmol/L (136-145) Potassium Level 3.4 mmol/L (3.5-5.1) Chloride Level 104 mmol/L (98-107) Carbon Dioxide Level 29 mmol/L (21-32) Anion Gap 8 (6-14) Blood Urea Nitrogen 11 mg/dL (7-20) Creatinine 0.9 mg/dL (0.6-1.0) Estimated GFR (Cockcroft-Gault) 68.0 BUN/Creatinine Ratio 12 (6-20) Glucose Level 98 mg/dL (70-99) Calcium Level 9.3 mg/dL (8.5-10.1) Total Bilirubin 0.4 mg/dL (0.2-1.0) Aspartate Amino Transf (AST/SGOT) 38 U/L (15-37) Alanine Aminotransferase (ALT/SGPT) 81 U/L (14-59) Alkaline Phosphatase 111 U/L (46-116) C-Reactive Protein, Quantitative 7.4 mg/L (0-3.3) Total Protein 7.7 g/dL (6.4-8.2) Albumin 3.5 g/dL (3.4-5.0) Albumin/Globulin Ratio 0.8 (1.0-1.7) Images Images Lumbar MRI, 08/13/16: FINDINGS: Alignment and curvature are within normal limits. There are no compression deformities. Bone marrow signal is within normal limits. The conus terminates normally at the level of L1. Visualized intra-abdominal contents are within normal limits. At L5-S1 there is no spinal stenosis. Mild disc height loss is noted. The remaining intervertebral disc spaces are well maintained. IMPRESSION Mild degenerative disc height loss at L5-S1. Otherwise unremarkable exam. Assessment/Plan Assessment/Plan Impression: Migraine headache Chronic back pain, negative MRI 8 months ago, fibromyalgia, psychiatric disease next line history of nonepileptic seizures Recommendations: Increase sumatriptan to 100 mg twice a day, 2 hours apart, no more than 2 days a week Continue current medications Thank you for letting me help with the patient's care. BRAEDEN ASKEW MD April 07, 2017 14:56
[2017-04-07 19:00] VITALS: BP 146/83
[2017-04-07] MEDS: VERAPAMIL SR 180 MG TABLET.ER. PO SCH (20:35)
[2017-04-07] MEDS: ATORVASTATIN CALCIUM 10 MG TABLET. PO SCH (20:35)
[2017-04-07] MEDS: ZOLPIDEM 5 MG TABLET. PO PRN (20:35)
[2017-04-07] MEDS: risperiDONE 0.25 MG TABLET. PO SCH (20:35)
[2017-04-07] MEDS: CETIRIZINE HCL 10 MG TABLET. PO SCH (20:36)
[2017-04-07] MEDS: ZOLPIDEM 5 MG TABLET. PO SCH (20:37)
[2017-04-07] MEDS: ASPIRIN ENTERIC COATED 81 MG TABLET.DR. PO SCH (20:37)
[2017-04-07] MEDS: clonazePAM 1 MG TABLET PO SCH (20:38)
[2017-04-07] MEDS: DOCUSATE SODIUM 100 MG CAPSULE. PO PRN (20:44)
[2017-04-07] MEDS ORDERED: SUMAtriptan SUCCINATE 25 MG TABLET PO PRN (21:00)
[2017-04-07] MEDS: CYCLOBENZAPRINE 10 MG TABLET. PO PRN (22:31)
[2017-04-07] MEDS: oxyCODONE IR 5 MG TABLET PO PRN (22:31)
[2017-04-07 23:00] VITALS: BP 135/86
[2017-04-08] MEDS: fentaNYL PF VIAL 100 MCG/2 ML VIAL IV PRN ×8 (00:15→22:37)
[2017-04-08] MEDS: METHOCARBAMOL 500 MG TABLET PO PRN ×3 (02:39→18:53)
[2017-04-08 03:00] VITALS: BP 134/71
[2017-04-08] MEDS: CYCLOBENZAPRINE 10 MG TABLET. PO PRN ×3 (04:46→22:54)
[2017-04-08] MEDS: LINACLOTIDE 145 MCG CAPSULE. PO SCH (06:26)
[2017-04-08] MEDS: PANTOPRAZOLE 40 MG TABLET.DR. PO SCH (06:26)
[2017-04-08] MEDS: LEVOTHYROXINE 50 MCG TABLET PO SCH (06:26)
[2017-04-08] MEDS: FAMOTIDINE 20 MG TABLET. PO SCH (06:26)
[2017-04-08] MEDS: oxyCODONE IR 5 MG TABLET PO PRN ×3 (06:26→18:53)
[2017-04-08 07:00] VITALS: BP 123/84
--- NOTE | 2017-04-08 07:20 | CONS ---
DATE OF CONSULTATION: 04/07/2017 ATTENDING PHYSICIAN: Dr. Bernal. The patient was seen at the request of Dr. Bernal for rehab evaluation. She is in room 410. 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 The patient had been basically bedridden for the last 1-1/2 years. The patient reports multiple evaluations for autoimmune and connective tissue disease, all negative, had been to [place] and [facility]. She was diagnosed as having fibromyalgia, had pain program there, 21-day program years ago, all medications were weaned off and aggressive physical therapy and occupational therapy. She felt better. She had been having increasing pain for the last 1-1/2 years and for the last few months, she is just basically staying in bed. She goes to bathroom walking for about 10 feet using a roller walker. She was seen by pain clinic doctor at [facility] and she had some trial injection on the right side, supposed to have trial injection on the left side. The patient was scheduled to have radiofrequency ablation to the lumbar area. She had been taking fentanyl 75 mcg per hour and also using hydrocodone for breakthrough pain. The patient uses ice packs and does the stretches. PAST MEDICAL HISTORY: Also includes migraines, seizure disorder, osteoarthritis, fibromyalgia. ALLERGIES: SHE IS KNOWN ALLERGIC TO SULFA, LOCAL ANESTHETICS, CODEINE, ELETRIPTAN, IOHEXOL, LEVOFLOXACIN, MEPERIDINE, METHADONE, METOCLOPRAMIDE, TIZANIDINE, TOPIRAMATE, TRAMADOL, TRIAMCINOLONE. REVIEW OF SYSTEMS: The patient denies any trouble with her bowel or bladder control. She admits numbness in the right thigh since she had an epidural shot ____, but about 12 years ago. SOCIAL HISTORY: The patient lives with her in a [facility] home in [facility], had multiple stairs for her to manage. The patient had a walker at home. PHYSICAL EXAMINATION: Today revealed a young female. The patient is obese. She is in no acute distress. She is alert, oriented to time, place, person and circumstance and follows commands appropriately, moves all 4 extremities voluntarily where she had 5/5 grade muscle strength and deep tendon reflexes are 1 to 2+ and symmetrical with absent right ankle jerk. She had equal perception of touch and pinprick sensation bilaterally. She had mild crepitus on range of motion of both knee joints and she had pain free range of motion of her hip joints. She had painful limited movements of the lumbar spine and tenderness to palpate over the lumbar paraspinal muscles extending over to the sacroiliac joint area and trochanteric bursa bilaterally. Straight leg raising test is negative bilaterally. She is independent with bed mobility. I have not tested her transfer or ambulation skills at this time, but she is walking to the bathroom using a roller walker by herself. As per nursing staff, no significant lumbar paraspinal muscle spasm was noted at this time. IMAGING: I have reviewed the MRI scan done on 08/13/2016 ____, which revealed degenerative disk disease mainly at L5-S1 and to some extent at L3-L4 level without any spinal stenosis or neural foraminal compromise. ASSESSMENT: Chronic lower back pain from degenerative disk disease of the lumbar vertebrae with lumbar radiculitis, no clinical evidence of ongoing lumbar radiculopathy, degenerative joint disease of both knees without any significant pain, obesity, history of fibromyalgia, migraines and seizures. RECOMMENDATIONS: Agree with the plan for physical therapy and occupational therapy, to ask ____ to consider radiofrequency ablation to the lower back as she admits it helped her before. Agree with the plan for screening for transfer to Inpatient Rehab Unit if she qualifies. Dr. Bernal, I appreciate asking me to participate in the care of this interesting patient. I will be glad to follow her with you as needed for her rehabilitation. WILD GOLDSMITH MD DR: SVEN/silas JOB#: [id number] / [id number]
[2017-04-08] MEDS: GABAPENTIN 400 MG CAPSULE. PO SCH ×2 (08:06→22:38)
[2017-04-08] MEDS: CALCIUM CARB/VIT D3 500/200 TABLET. PO SCH (08:06)
[2017-04-08] MEDS: levETIRAcetam 500 MG TABLET PO SCH ×2 (08:07→22:39)
[2017-04-08] MEDS: CELECOXIB 200 MG CAPSULE. PO SCH (08:07)
[2017-04-08] MEDS: clonazePAM 1 MG TABLET PO SCH ×3 (08:07→22:39)
[2017-04-08] MEDS: POTASSIUM CHLORIDE 20 MEQ TABLET.ER. PO SCH (08:07)
[2017-04-08] MEDS: VENLAFAXINE 50 MG TABLET. PO SCH ×3 (08:08→22:39)
[2017-04-08] MEDS: ENOXAPARIN 40 MG/0.4 ML SYRINGE. SQ SCH ×2 (08:10→22:44)
[2017-04-08] MEDS: ELMIRON 100 MG PO SCH ×3 (08:10→22:41)
[2017-04-08] MEDS ORDERED: fentaNYL 75MCG/HR PATCH 1 PATCH PATCH.TD72 TD SCH (09:00)
[2017-04-08] MEDS ORDERED: NON FORMULARY ITEM (Dextroamphetamine/Amphetamine (Adderall 20 Mg Tablet) 20 MG) PO SCH (09:00)
--- NOTE | 2017-04-08 09:29 | PDOC ---
PROGRESS NOTES Subjective Subjective She did not sleep well last night. Objective Objective Vital Signs Date Time Temp Pulse Resp B/P (MAP) Pulse Ox O2 Delivery O2 Flow Rate FiO2 04/08/17 08:50 Room Air 04/08/17 07:00 97.8 86 20 123/84 (97) 98 97.8 Intake and Output 04/08/17 07:00 Intake Total 1300 ml Balance 1300 ml Intake Oral 1300 ml # Voids 5 Physical Exam Physical Exam She is supine in bed and in no acute distress. She has been getting up with roller walker to bathroom independently. Plan Plan of Care She could not have radiofrequency ablation done as she is on anticoagulation since admission. felt that she should have them done by the doctor she had established relationship at [facility]. She needs have her pain under better control to participate intensive rehab efforts.Home when medically stable and to arrange for admission to [facility] when her pain is under better control. Comment Review of Relevant I have reviewed the following items mohsen (where applicable) has been applied. Labs Laboratory Tests Test 04/06/17 20:10 White Blood Count 10.0 x10^3/uL (4.0-11.0) Red Blood Count 4.63 x10^6/uL (3.50-5.40) Hemoglobin 13.5 g/dL (12.0-15.5) Hematocrit 39.2 % (36.0-47.0) Mean Corpuscular Volume 85 fL (79-100) Mean Corpuscular Hemoglobin 29 pg (25-35) Mean Corpuscular Hemoglobin Concent 35 g/dL (31-37) Red Cell Distribution Width 13.2 % (11.5-14.5) Platelet Count 290 x10^3/uL (140-400) Neutrophils (%) (Auto) 56 % (31-73) Lymphocytes (%) (Auto) 37 % (24-48) Monocytes (%) (Auto) 6 % (0-9) Eosinophils (%) (Auto) 1 % (0-3) Basophils (%) (Auto) 1 % (0-3) Neutrophils # (Auto) 5.6 x10^3uL (1.8-7.7) Lymphocytes # (Auto) 3.6 x10^3/uL (1.0-4.8) Monocytes # (Auto) 0.6 x10^3/uL (0.0-1.1) Eosinophils # (Auto) 0.1 x10^3/uL (0.0-0.7) Basophils # (Auto) 0.1 x10^3/uL (0.0-0.2) Erythrocyte Sedimentation Rate 26 (0-25) Sodium Level 141 mmol/L (136-145) Potassium Level 3.4 mmol/L (3.5-5.1) Chloride Level 104 mmol/L (98-107) Carbon Dioxide Level 29 mmol/L (21-32) Anion Gap 8 (6-14) Blood Urea Nitrogen 11 mg/dL (7-20) Creatinine 0.9 mg/dL (0.6-1.0) Estimated GFR (Cockcroft-Gault) 68.0 BUN/Creatinine Ratio 12 (6-20) Glucose Level 98 mg/dL (70-99) Calcium Level 9.3 mg/dL (8.5-10.1) Total Bilirubin 0.4 mg/dL (0.2-1.0) Aspartate Amino Transf (AST/SGOT) 38 U/L (15-37) Alanine Aminotransferase (ALT/SGPT) 81 U/L (14-59) Alkaline Phosphatase 111 U/L (46-116) C-Reactive Protein, Quantitative 7.4 mg/L (0-3.3) Total Protein 7.7 g/dL (6.4-8.2) Albumin 3.5 g/dL (3.4-5.0) Albumin/Globulin Ratio 0.8 (1.0-1.7) Medications Current Medications Fentanyl Citrate (Fentanyl 2ml Vial) 50 mcg PRN Q15MIN PRN IV PAIN GREATER THAN 3/10 Last administered on 04/06/17 22:43; Start 04/06/17 at 20:45; Stop at 23:59 Fentanyl Citrate (Fentanyl 2ml Vial) 50 mcg PRN Q2HR PRN IV PAIN Last administered on 04/08/17 08:11; Start 04/06/17 at 22:45 Gabapentin (Neurontin) 1,200 mg BID PO Last administered on 04/08/17 08:06; Start 04/07/17 at 09:00 Oxycodone HCl (Roxicodone) 5 mg PRN Q6HRS PRN PO PAIN Last administered on 04/08 06:26; Start 04/06/17 at 22:45 Potassium Chloride (Klor-Con) 20 meq 1X ONCE PO Last administered on 23:15; Start 04/06/17 at 23:00; Stop 04/06/17 at 23:01; Status DC Potassium Chloride (Klor-Con) 20 meq DAILYWBKFT PO Last administered on 08:07; Start 04/07/17 at 08:00 Magnesium Sulfate/ Dextrose 50 ml @ 25 mls/hr 1X ONCE IV Last administered on 04/06/17 23:32; Start 04/06/17 at 23:00; Stop 04/07/17 at 00:59; Status DC Diphenhydramine HCl (Benadryl) 25 mg PRN Q6HRS PRN PO ITCHING; Start 04/06/17 at 22:45 Zolpidem Tartrate (Ambien) 5 mg PRN QHS PRN PO INSOMNIA Last administered on 20:35; Start 04/06/17 at 22:45 Enoxaparin Sodium (Lovenox Per Pharmacy Prophylaxis Dosing) 1 each PRN DAILY PRN MC SEE COMMENTS; Start 04/06/17 at 23:00 Sumatriptan Succinate (Imitrex) 50 mg PRN Q2HR PRN PO MIGRAINE HEADACHE Last administered on 04/07/17 09:27; Start 04/06/17 at 22:45; Stop 04/07/17 at 14:50 ; Status DC Cyclobenzaprine HCl (Flexeril) 10 mg PRN Q6HRS PRN PO MUSCLE SPASMS Last administered on 04/08/17 04:46; Start 04/06/17 at 22:45 Enoxaparin Sodium (Lovenox 40mg Syringe) 40 mg DAILY SQ ; Start 04/07/17 at 09: 00; Stop 04/07/17 at 09:00; Status DC Enoxaparin Sodium (Lovenox 40mg Syringe) 40 mg Q12HR SQ Last administered on 08:10; Start 04/07/17 at 09:00 Aspirin (Ecotrin) 81 mg DAILYWBKFT PO ; Start 04/07/17 at 10:00; Stop 04/07/17 at 10:03; Status DC Atorvastatin Calcium (Lipitor) 10 mg QHS PO Last administered on 04/07/17 20: 35; Start 04/07/17 at 21:00 Calcium/Vitamin D (Oscal D 500mg/ 200uts) 1 tab DAILY PO Last administered on 08:06; Start 04/07/17 at 10:00 Celecoxib (CeleBREX) 200 mg DAILY PO Last administered on 04/08/17 08:07; Start 04/07/17 at 10:00 Cetirizine HCl (ZyrTEC) 10 mg DAILY PO ; Start 04/07/17 at 10:00; Stop 04/07/17 at 10:03; Status DC Clonazepam (KlonoPIN) 1 mg TID PRN PO ANXIETY; Start 04/07/17 at 09:30; Stop at 18:27; Status DC Docusate Sodium (Colace) 100 mg TID PRN PRN PO CONSTIPATION Last administered on 04/07/17 20:44; Start 04/07/17 at 09:30 Fentanyl (Duragesic 75mcg/ Hr Patch) 1 patch Q3DAYS TD ; Start 04/08/17 at 09:00 ; Stop 04/08/17 at 09:00; Status DC Levothyroxine Sodium (Synthroid) 50 mcg DAILY07 PO Last administered on 06:26; Start 04/07/17 at 10:00 Methocarbamol (Robaxin) 500 mg Q8HRS PRN PO PAIN Last administered on 02:39; Start 04/07/17 at 09:30 Non-Formulary Medication 1 ea TID PO Last administered on 04/08/17 08:10; Start 04/07/17 at 11:00 Non-Formulary Medication 20 mg DAILY PO ; Start 04/08/17 at 09:00; Status UNV Pantoprazole Sodium (Protonix) 40 mg DAILYAC PO ; Start 04/07/17 at 10:00; Stop 04/07/17 at 10:00; Status DC Hydroxyzine HCl (Atarax) 25 mg PRN TID PRN PO ITCHING; Start 04/07/17 at 09:45 Levetiracetam (Keppra) 1,000 mg BID PO Last administered on 04/08/17 08:07; Start 04/07/17 at 10:30 Linaclotide (Linzess) 290 mcg DAILY07 PO Last administered on 04/08/17 06:26; Start 04/07/17 at 10:00 Non-Formulary Medication 10 mg HS PRN PO INSOMNIA; Start 04/07/17 at 09:30; Status UNV Ondansetron HCl (Zofran Odt) 4 mg PRN Q8HRS PRN PO NAUSEA Last administered on 04/07/17 22:31; Start 04/07/17 at 09:45 Famotidine (Pepcid) 20 mg DAILY06 PO Last administered on 04/08/17 06:26; Start 04/07/17 at 10:00 Risperidone (RisperDAL) 0.5 mg QHS PO Last administered on 04/07/17 20:35; Start 04/07/17 at 21:00 Venlafaxine HCl (Effexor) 50 mg TID PO Last administered on 04/08/17 08:08; Start 04/07/17 at 09:45 Verapamil HCl (Calan Sr) 180 mg QHS PO Last administered on 04/07/17 20:35; Start 04/07/17 at 21:00 Zolpidem Tartrate (Ambien) 5 mg QHS PO Last administered on 04/07/17 20:37; Start 04/07/17 at 21:00 Pantoprazole Sodium (Protonix) 40 mg DAILY06 PO Last administered on 04/08/17 06:26; Start 04/07/17 at 10:00 Aspirin (Ecotrin) 81 mg HS PO Last administered on 04/07/17 20:37; Start 04/07 at 21:00 Cetirizine HCl (ZyrTEC) 10 mg HS PO Last administered on 04/07/17 20:36; Start 04/07/17 at 21:00 Sumatriptan Succinate (Imitrex) 100 mg BID PRN PO MIGRAINE HEADACHE Last administered on 04/08/17 06:28; Start 04/07/17 at 21:00 Clonazepam (KlonoPIN) 1 mg TID PO Last administered on 04/08/17 08:07; Start 04/07/17 at 21:00 Fentanyl (Duragesic 75mcg/ Hr Patch) 1 patch Q3DAYS TD ; Start 04/10/17 at 09:00 Active Scripts Active Reported Oyster Shell Calcium +D Tablet (Calcium Carbonate/Vitamin D3) 1 Each Tablet 1 Each PO DAILY Lipitor (Atorvastatin Calcium) 10 Mg Tablet 1 Tab PO DAILY Adderall 20 Mg Tablet (Dextroamphetamine/Amphetamine) 20 Mg Tablet 20 Mg PO DAILY Effexor Xr (Venlafaxine Hcl) 150 Mg Cap.er.24h 1 Cap PO DAILY Celebrex (Celecoxib) 200 Mg Capsule 1 Cap PO DAILY Zofran (Ondansetron Hcl) 4 Mg Tablet 1 Tab PO TID PRN PRN Linzess (Linaclotide) 290 Mcg Capsule 290 Mcg PO DAILY Zyrtec (Cetirizine Hcl) 10 Mg Tablet 1 Tab PO DAILY Vitamin D (Cholecalciferol (Vitamin D3)) 10,000 Unit Capsule 50,000 Unit PO QWE Verapamil Er (Verapamil Hcl) 240 Mg Cap24h.pel 180 Mg PO HS Aspir 81 (Aspirin) 81 Mg Tablet.dr 1 Tab PO DAILY Klonopin (Clonazepam) 1 Mg Tablet 1 Tab PO TID PRN Hydroxyzine Hcl 25 Mg Tablet 25 Mg PO Q8HRS PRN Risperdal (Risperidone) 0.5 Mg Tablet 1 Tab PO QHS Ambien Cr (Zolpidem Tartrate) 12.5 Mg Tab.mphase 1 Tab PO QHS Levothyroxine Sodium 50 Mcg Tablet 1 Tab PO DAILY Keppra (Levetiracetam) 1,000 Mg Tablet 2,000 Mg PO DAILY Melatonin 5 Mg Capsule 10 Mg PO HS PRN FENTANYL 75mcg/hr (Fentanyl) 1 Each Patch.td72 1 Patch TP Q3DAYS Colace (Docusate Sodium) 100 Mg Capsule 1 Cap PO TID PRN PRN Robaxin (Methocarbamol) 500 Mg Tablet 1 Tab PO Q8HRS PRN Gabapentin 600 Mg Tablet 1,200 Mg PO BID Zantac (Ranitidine Hcl) 300 Mg Tablet 300 Mg PO DAILY06 Nexium Capsule (Esomeprazole Magnesium) 40 Mg Capsule.dr 1 Cap PO DAILY06 Elmiron (Pentosan Polysulfate Sodium) 100 Mg Capsule 1 Cap PO TID Vitals/I & O Vital Sign - Last 24 Hours 04/07/17 04/07/17 04/07/17 04/07/17 11:00 11:18 14:41 15:23 Temp 98.0 97.8 98.0 97.8 Pulse 93 90 Resp 20 20 B/P (MAP) 137/78 (97) 157/97 (117) Pulse Ox 95 95 96 O2 Delivery Room Air Room Air Room Air Room Air 04/07/17 04/07/17 04/07/17 04/07/17 18:17 19:00 20:00 20:29 Temp 98.4 98.4 Pulse 103 Resp 18 16 B/P (MAP) 146/83 (104) Pulse Ox 97 O2 Delivery Room Air Room Air Room Air Room Air 04/07/17 04/07/17 04/07/17 04/07/17 20:35 22:31 23:00 23:34 Temp 98.7 98.7 Pulse 103 90 Resp 16 18 16 B/P (MAP) 146/83 135/86 (102) Pulse Ox 93 O2 Delivery Room Air Room Air 04/08/17 04/08/17 04/08/17 04/08/17 00:15 02:47 03:00 04:48 Temp 98.4 98.4 Pulse 94 Resp 16 16 18 18 B/P (MAP) 134/71 (92) Pulse Ox 96 O2 Delivery BiPAP/CPAP BiPAP/CPAP BiPAP/CPAP BiPAP/CPAP 04/08/17 04/08/17 04/08/17 04/08/17 05:18 06:26 07:00 07:30 Temp 97.8 97.8 Pulse 86 Resp 18 16 20 B/P (MAP) 123/84 (97) Pulse Ox 98 O2 Delivery BiPAP/CPAP Room Air Room Air 04/08/17 04/08/17 04/08/17 07:35 08:11 08:50 O2 Delivery Room Air Room Air Room Air Intake and Output 04/07/17 04/07/17 04/08/17 15:00 23:00 07:00 Intake Total 700 ml 600 ml Balance 700 ml 600 ml WILD GOLDSMITH MD April 08, 2017 09:29
--- NOTE | 2017-04-08 10:56 | PDOC ---
PROGRESS NOTES Assessment Migraine headaches Fibromyalgia, chronic pain Negative lumbar MRI Plan Continue Imitrex when necessary 100 mg twice a day no closer than 2 hours apart , but as an outpatient only use no more than 2 days a week. Okay to continue it here as an inpatient. Follow-up with her pain management doctor in [facility] for discharge Follow-up with me as needed. Subjective Headaches are a little better, still has whole body pain. Objective Vital Signs Date Time Temp Pulse Resp B/P (MAP) Pulse Ox O2 Delivery O2 Flow Rate FiO2 04/08/17 10:52 Room Air 04/08/17 07:00 97.8 86 20 123/84 (97) 98 97.8 Intake and Output 04/08/17 07:00 Intake Total 1300 ml Balance 1300 ml Intake Oral 1300 ml # Voids 5 PHYSICAL EXAM Alert. Oriented to time, place and person. PERRL. EOMI. CN: no focal findings. Muscle tone: normal. Muscle strength: 5/5 DTR: 2+ Plantar reflex: flexor Gait: not examined in bed. Sensory exam: no abnormal findings. No cerebellar signs elicited. Review of Relevant I have reviewed the following items mohsen (where applicable) has been applied. Labs Laboratory Tests Test 04/06/17 20:10 White Blood Count 10.0 x10^3/uL (4.0-11.0) Red Blood Count 4.63 x10^6/uL (3.50-5.40) Hemoglobin 13.5 g/dL (12.0-15.5) Hematocrit 39.2 % (36.0-47.0) Mean Corpuscular Volume 85 fL (79-100) Mean Corpuscular Hemoglobin 29 pg (25-35) Mean Corpuscular Hemoglobin Concent 35 g/dL (31-37) Red Cell Distribution Width 13.2 % (11.5-14.5) Platelet Count 290 x10^3/uL (140-400) Neutrophils (%) (Auto) 56 % (31-73) Lymphocytes (%) (Auto) 37 % (24-48) Monocytes (%) (Auto) 6 % (0-9) Eosinophils (%) (Auto) 1 % (0-3) Basophils (%) (Auto) 1 % (0-3) Neutrophils # (Auto) 5.6 x10^3uL (1.8-7.7) Lymphocytes # (Auto) 3.6 x10^3/uL (1.0-4.8) Monocytes # (Auto) 0.6 x10^3/uL (0.0-1.1) Eosinophils # (Auto) 0.1 x10^3/uL (0.0-0.7) Basophils # (Auto) 0.1 x10^3/uL (0.0-0.2) Erythrocyte Sedimentation Rate 26 (0-25) Sodium Level 141 mmol/L (136-145) Potassium Level 3.4 mmol/L (3.5-5.1) Chloride Level 104 mmol/L (98-107) Carbon Dioxide Level 29 mmol/L (21-32) Anion Gap 8 (6-14) Blood Urea Nitrogen 11 mg/dL (7-20) Creatinine 0.9 mg/dL (0.6-1.0) Estimated GFR (Cockcroft-Gault) 68.0 BUN/Creatinine Ratio 12 (6-20) Glucose Level 98 mg/dL (70-99) Calcium Level 9.3 mg/dL (8.5-10.1) Total Bilirubin 0.4 mg/dL (0.2-1.0) Aspartate Amino Transf (AST/SGOT) 38 U/L (15-37) Alanine Aminotransferase (ALT/SGPT) 81 U/L (14-59) Alkaline Phosphatase 111 U/L (46-116) C-Reactive Protein, Quantitative 7.4 mg/L (0-3.3) Total Protein 7.7 g/dL (6.4-8.2) Albumin 3.5 g/dL (3.4-5.0) Albumin/Globulin Ratio 0.8 (1.0-1.7) Medications Current Medications Fentanyl Citrate (Fentanyl 2ml Vial) 50 mcg PRN Q15MIN PRN IV PAIN GREATER THAN 3/10 Last administered on 04/06/17 22:43; Start 04/06/17 at 20:45; Stop at 23:59 Fentanyl Citrate (Fentanyl 2ml Vial) 50 mcg PRN Q2HR PRN IV PAIN Last administered on 04/08/17 10:20; Start 04/06/17 at 22:45 Gabapentin (Neurontin) 1,200 mg BID PO Last administered on 04/08/17 08:06; Start 04/07/17 at 09:00 Oxycodone HCl (Roxicodone) 5 mg PRN Q6HRS PRN PO PAIN Last administered on 04/08 06:26; Start 04/06/17 at 22:45 Potassium Chloride (Klor-Con) 20 meq 1X ONCE PO Last administered on 23:15; Start 04/06/17 at 23:00; Stop 04/06/17 at 23:01; Status DC Potassium Chloride (Klor-Con) 20 meq DAILYWBKFT PO Last administered on 08:07; Start 04/07/17 at 08:00 Magnesium Sulfate/ Dextrose 50 ml @ 25 mls/hr 1X ONCE IV Last administered on 04/06/17 23:32; Start 04/06/17 at 23:00; Stop 04/07/17 at 00:59; Status DC Diphenhydramine HCl (Benadryl) 25 mg PRN Q6HRS PRN PO ITCHING; Start 04/06/17 at 22:45 Zolpidem Tartrate (Ambien) 5 mg PRN QHS PRN PO INSOMNIA Last administered on 20:35; Start 04/06/17 at 22:45 Enoxaparin Sodium (Lovenox Per Pharmacy Prophylaxis Dosing) 1 each PRN DAILY PRN MC SEE COMMENTS; Start 04/06/17 at 23:00 Sumatriptan Succinate (Imitrex) 50 mg PRN Q2HR PRN PO MIGRAINE HEADACHE Last administered on 04/07/17 09:27; Start 04/06/17 at 22:45; Stop 04/07/17 at 14:50 ; Status DC Cyclobenzaprine HCl (Flexeril) 10 mg PRN Q6HRS PRN PO MUSCLE SPASMS Last administered on 04/08/17 04:46; Start 04/06/17 at 22:45 Enoxaparin Sodium (Lovenox 40mg Syringe) 40 mg DAILY SQ ; Start 04/07/17 at 09: 00; Stop 04/07/17 at 09:00; Status DC Enoxaparin Sodium (Lovenox 40mg Syringe) 40 mg Q12HR SQ Last administered on 08:10; Start 04/07/17 at 09:00 Aspirin (Ecotrin) 81 mg DAILYWBKFT PO ; Start 04/07/17 at 10:00; Stop 04/07/17 at 10:03; Status DC Atorvastatin Calcium (Lipitor) 10 mg QHS PO Last administered on 04/07/17 20: 35; Start 04/07/17 at 21:00 Calcium/Vitamin D (Oscal D 500mg/ 200uts) 1 tab DAILY PO Last administered on 08:06; Start 04/07/17 at 10:00 Celecoxib (CeleBREX) 200 mg DAILY PO Last administered on 04/08/17 08:07; Start 04/07/17 at 10:00 Cetirizine HCl (ZyrTEC) 10 mg DAILY PO ; Start 04/07/17 at 10:00; Stop 04/07/17 at 10:03; Status DC Clonazepam (KlonoPIN) 1 mg TID PRN PO ANXIETY; Start 04/07/17 at 09:30; Stop at 18:27; Status DC Docusate Sodium (Colace) 100 mg TID PRN PRN PO CONSTIPATION Last administered on 04/07/17 20:44; Start 04/07/17 at 09:30 Fentanyl (Duragesic 75mcg/ Hr Patch) 1 patch Q3DAYS TD ; Start 04/08/17 at 09:00 ; Stop 04/08/17 at 09:00; Status DC Levothyroxine Sodium (Synthroid) 50 mcg DAILY07 PO Last administered on 06:26; Start 04/07/17 at 10:00 Methocarbamol (Robaxin) 500 mg Q8HRS PRN PO PAIN Last administered on 10:52; Start 04/07/17 at 09:30 Non-Formulary Medication 1 ea TID PO Last administered on 04/08/17 08:10; Start 04/07/17 at 11:00 Non-Formulary Medication 20 mg DAILY PO ; Start 04/08/17 at 09:00; Status UNV Pantoprazole Sodium (Protonix) 40 mg DAILYAC PO ; Start 04/07/17 at 10:00; Stop 04/07/17 at 10:00; Status DC Hydroxyzine HCl (Atarax) 25 mg PRN TID PRN PO ITCHING; Start 04/07/17 at 09:45 Levetiracetam (Keppra) 1,000 mg BID PO Last administered on 04/08/17 08:07; Start 04/07/17 at 10:30 Linaclotide (Linzess) 290 mcg DAILY07 PO Last administered on 04/08/17 06:26; Start 04/07/17 at 10:00 Non-Formulary Medication 10 mg HS PRN PO INSOMNIA; Start 04/07/17 at 09:30; Status UNV Ondansetron HCl (Zofran Odt) 4 mg PRN Q8HRS PRN PO NAUSEA Last administered on 04/07/17 22:31; Start 04/07/17 at 09:45 Famotidine (Pepcid) 20 mg DAILY06 PO Last administered on 04/08/17 06:26; Start 04/07/17 at 10:00 Risperidone (RisperDAL) 0.5 mg QHS PO Last administered on 04/07/17 20:35; Start 04/07/17 at 21:00 Venlafaxine HCl (Effexor) 50 mg TID PO Last administered on 04/08/17 08:08; Start 04/07/17 at 09:45 Verapamil HCl (Calan Sr) 180 mg QHS PO Last administered on 04/07/17 20:35; Start 04/07/17 at 21:00 Zolpidem Tartrate (Ambien) 5 mg QHS PO Last administered on 04/07/17 20:37; Start 04/07/17 at 21:00 Pantoprazole Sodium (Protonix) 40 mg DAILY06 PO Last administered on 04/08/17 06:26; Start 04/07/17 at 10:00 Aspirin (Ecotrin) 81 mg HS PO Last administered on 04/07/17 20:37; Start 04/07 at 21:00 Cetirizine HCl (ZyrTEC) 10 mg HS PO Last administered on 04/07/17 20:36; Start 04/07/17 at 21:00 Sumatriptan Succinate (Imitrex) 100 mg BID PRN PO MIGRAINE HEADACHE Last administered on 04/08/17 06:28; Start 04/07/17 at 21:00 Clonazepam (KlonoPIN) 1 mg TID PO Last administered on 04/08/17t 08:07; Start 04/07/17 at 21:00 Fentanyl (Duragesic 75mcg/ Hr Patch) 1 patch Q3DAYS TD ; Start 04/10/17 at 09:00 Active Scripts Active Reported Oyster Shell Calcium +D Tablet (Calcium Carbonate/Vitamin D3) 1 Each Tablet 1 Each PO DAILY Lipitor (Atorvastatin Calcium) 10 Mg Tablet 1 Tab PO DAILY Adderall 20 Mg Tablet (Dextroamphetamine/Amphetamine) 20 Mg Tablet 20 Mg PO DAILY Effexor Xr (Venlafaxine Hcl) 150 Mg Cap.er.24h 1 Cap PO DAILY Celebrex (Celecoxib) 200 Mg Capsule 1 Cap PO DAILY Zofran (Ondansetron Hcl) 4 Mg Tablet 1 Tab PO TID PRN PRN Linzess (Linaclotide) 290 Mcg Capsule 290 Mcg PO DAILY Zyrtec (Cetirizine Hcl) 10 Mg Tablet 1 Tab PO DAILY Vitamin D (Cholecalciferol (Vitamin D3)) 10,000 Unit Capsule 50,000 Unit PO QWE Verapamil Er (Verapamil Hcl) 240 Mg Cap24h.pel 180 Mg PO HS Aspir 81 (Aspirin) 81 Mg Tablet.dr 1 Tab PO DAILY Klonopin (Clonazepam) 1 Mg Tablet 1 Tab PO TID PRN Hydroxyzine Hcl 25 Mg Tablet 25 Mg PO Q8HRS PRN Risperdal (Risperidone) 0.5 Mg Tablet 1 Tab PO QHS Ambien Cr (Zolpidem Tartrate) 12.5 Mg Tab.mphase 1 Tab PO QHS Levothyroxine Sodium 50 Mcg Tablet 1 Tab PO DAILY Keppra (Levetiracetam) 1,000 Mg Tablet 2,000 Mg PO DAILY Melatonin 5 Mg Capsule 10 Mg PO HS PRN FENTANYL 75mcg/hr (Fentanyl) 1 Each Patch.td72 1 Patch TP Q3DAYS Colace (Docusate Sodium) 100 Mg Capsule 1 Cap PO TID PRN PRN Robaxin (Methocarbamol) 500 Mg Tablet 1 Tab PO Q8HRS PRN Gabapentin 600 Mg Tablet 1,200 Mg PO BID Zantac (Ranitidine Hcl) 300 Mg Tablet 300 Mg PO DAILY06 Nexium Capsule (Esomeprazole Magnesium) 40 Mg Capsule.dr 1 Cap PO DAILY06 Elmiron (Pentosan Polysulfate Sodium) 100 Mg Capsule 1 Cap PO TID Vitals/I & O Vital Sign - Last 24 Hours 04/07/17 04/07/17 04/07/17 04/07/17 11:00 11:18 14:41 15:23 Temp 98.0 97.8 98.0 97.8 Pulse 93 90 Resp 20 20 B/P (MAP) 137/78 (97) 157/97 (117) Pulse Ox 95 95 96 O2 Delivery Room Air Room Air Room Air Room Air 04/07/17 04/07/17 04/07/17 04/07/17 18:17 19:00 20:00 20:29 Temp 98.4 98.4 Pulse 103 Resp 18 16 B/P (MAP) 146/83 (104) Pulse Ox 97 O2 Delivery Room Air Room Air Room Air Room Air 04/07/17 04/07/17 04/07/17 04/07/17 20:35 22:31 23:00 23:34 Temp 98.7 98.7 Pulse 103 90 Resp 16 18 16 B/P (MAP) 146/83 135/86 (102) Pulse Ox 93 O2 Delivery Room Air Room Air 04/08/17 04/08/17 04/08/17 04/08/17 00:15 02:47 03:00 04:48 Temp 98.4 98.4 Pulse 94 Resp 16 16 18 18 B/P (MAP) 134/71 (92) Pulse Ox 96 O2 Delivery BiPAP/CPAP BiPAP/CPAP BiPAP/CPAP BiPAP/CPAP 04/08/17 04/08/17 04/08/17 04/08/17 05:18 06:26 07:00 07:30 Temp 97.8 97.8 Pulse 86 Resp 18 16 20 B/P (MAP) 123/84 (97) Pulse Ox 98 O2 Delivery BiPAP/CPAP Room Air Room Air 04/08/17 04/08/17 04/08/17 04/08/17 07:35 08:11 10:20 10:52 O2 Delivery Room Air Room Air Room Air Room Air Intake and Output 04/07/17 04/07/17 04/08/17 15:00 23:00 07:00 Intake Total 700 ml 600 ml Balance 700 ml 600 ml BRAEDEN ASKEW MD April 08, 2017 10:56
[2017-04-08 11:00] VITALS: BP 148/84
--- NOTE | 2017-04-08 11:09 | PDOC ---
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 Obesity. Non epileptic seizures, : on Keppra Fibromyalgia: PT/OT History of Present Illness History of Present Illness pain 06/30, not controlled, Vitals Vitals Vital Signs Date Time Temp Pulse Resp B/P (MAP) Pulse Ox O2 Delivery O2 Flow Rate FiO2 04/08/17 10:52 Room Air 04/08/17 07:00 97.8 86 20 123/84 (97) 98 97.8 Physical Exam General: Alert, Oriented X3, Cooperative, mild distress, moderate distress, Other (obese.) Heart: Normal S1, Normal S2 Lungs: Clear Abdomen: Normal bowel sounds, Soft (obese) Extremities: No clubbing, No cyanosis Skin: No breakdown, No significant lesion, Other (erythematous arms and face) Comment Review of Relevant I have reviewed the following items mohsen (where applicable) has been applied. Labs Laboratory Tests Test 04/06/17 20:10 White Blood Count 10.0 x10^3/uL (4.0-11.0) Red Blood Count 4.63 x10^6/uL (3.50-5.40) Hemoglobin 13.5 g/dL (12.0-15.5) Hematocrit 39.2 % (36.0-47.0) Mean Corpuscular Volume 85 fL (79-100) Mean Corpuscular Hemoglobin 29 pg (25-35) Mean Corpuscular Hemoglobin Concent 35 g/dL (31-37) Red Cell Distribution Width 13.2 % (11.5-14.5) Platelet Count 290 x10^3/uL (140-400) Neutrophils (%) (Auto) 56 % (31-73) Lymphocytes (%) (Auto) 37 % (24-48) Monocytes (%) (Auto) 6 % (0-9) Eosinophils (%) (Auto) 1 % (0-3) Basophils (%) (Auto) 1 % (0-3) Neutrophils # (Auto) 5.6 x10^3uL (1.8-7.7) Lymphocytes # (Auto) 3.6 x10^3/uL (1.0-4.8) Monocytes # (Auto) 0.6 x10^3/uL (0.0-1.1) Eosinophils # (Auto) 0.1 x10^3/uL (0.0-0.7) Basophils # (Auto) 0.1 x10^3/uL (0.0-0.2) Erythrocyte Sedimentation Rate 26 (0-25) Sodium Level 141 mmol/L (136-145) Potassium Level 3.4 mmol/L (3.5-5.1) Chloride Level 104 mmol/L (98-107) Carbon Dioxide Level 29 mmol/L (21-32) Anion Gap 8 (6-14) Blood Urea Nitrogen 11 mg/dL (7-20) Creatinine 0.9 mg/dL (0.6-1.0) Estimated GFR (Cockcroft-Gault) 68.0 BUN/Creatinine Ratio 12 (6-20) Glucose Level 98 mg/dL (70-99) Calcium Level 9.3 mg/dL (8.5-10.1) Total Bilirubin 0.4 mg/dL (0.2-1.0) Aspartate Amino Transf (AST/SGOT) 38 U/L (15-37) Alanine Aminotransferase (ALT/SGPT) 81 U/L (14-59) Alkaline Phosphatase 111 U/L (46-116) C-Reactive Protein, Quantitative 7.4 mg/L (0-3.3) Total Protein 7.7 g/dL (6.4-8.2) Albumin 3.5 g/dL (3.4-5.0) Albumin/Globulin Ratio 0.8 (1.0-1.7) Medications Current Medications Fentanyl Citrate (Fentanyl 2ml Vial) 50 mcg PRN Q15MIN PRN IV PAIN GREATER THAN 3/10 Last administered on 04/06/17 22:43; Start 04/06/17 at 20:45; Stop at 23:59 Fentanyl Citrate (Fentanyl 2ml Vial) 50 mcg PRN Q2HR PRN IV PAIN Last administered on 04/08/17 10:20; Start 04/06/17 at 22:45 Gabapentin (Neurontin) 1,200 mg BID PO Last administered on 04/08/17 08:06; Start 04/07/17 at 09:00 Oxycodone HCl (Roxicodone) 5 mg PRN Q6HRS PRN PO PAIN Last administered on 04/08 06:26; Start 04/06/17 at 22:45 Potassium Chloride (Klor-Con) 20 meq 1X ONCE PO Last administered on 23:15; Start 04/06/17 at 23:00; Stop 04/06/17 at 23:01; Status DC Potassium Chloride (Klor-Con) 20 meq DAILYWBKFT PO Last administered on 08:07; Start 04/07/17 at 08:00 Magnesium Sulfate/ Dextrose 50 ml @ 25 mls/hr 1X ONCE IV Last administered on 04/06/17 23:32; Start 04/06/17 at 23:00; Stop 04/07/17 at 00:59; Status DC Diphenhydramine HCl (Benadryl) 25 mg PRN Q6HRS PRN PO ITCHING; Start 04/06/17 at 22:45 Zolpidem Tartrate (Ambien) 5 mg PRN QHS PRN PO INSOMNIA Last administered on 20:35; Start 04/06/17 at 22:45 Enoxaparin Sodium (Lovenox Per Pharmacy Prophylaxis Dosing) 1 each PRN DAILY PRN MC SEE COMMENTS; Start 04/06/17 at 23:00 Sumatriptan Succinate (Imitrex) 50 mg PRN Q2HR PRN PO MIGRAINE HEADACHE Last administered on 04/07/17 09:27; Start 04/06/17 at 22:45; Stop 04/07/17 at 14:50 ; Status DC Cyclobenzaprine HCl (Flexeril) 10 mg PRN Q6HRS PRN PO MUSCLE SPASMS Last administered on 04/08/17 04:46; Start 04/06/17 at 22:45 Enoxaparin Sodium (Lovenox 40mg Syringe) 40 mg DAILY SQ ; Start 04/07/17 at 09: 00; Stop 04/07/17 at 09:00; Status DC Enoxaparin Sodium (Lovenox 40mg Syringe) 40 mg Q12HR SQ Last administered on 08:10; Start 04/07/17 at 09:00 Aspirin (Ecotrin) 81 mg DAILYWBKFT PO ; Start 04/07/17 at 10:00; Stop 04/07/17 at 10:03; Status DC Atorvastatin Calcium (Lipitor) 10 mg QHS PO Last administered on 04/07/17 20: 35; Start 04/07/17 at 21:00 Calcium/Vitamin D (Oscal D 500mg/ 200uts) 1 tab DAILY PO Last administered on 08:06; Start 04/07/17 at 10:00 Celecoxib (CeleBREX) 200 mg DAILY PO Last administered on 04/08/17 08:07; Start 04/07/17 at 10:00 Cetirizine HCl (ZyrTEC) 10 mg DAILY PO ; Start 04/07/17 at 10:00; Stop 04/07/17 at 10:03; Status DC Clonazepam (KlonoPIN) 1 mg TID PRN PO ANXIETY; Start 04/07/17 at 09:30; Stop at 18:27; Status DC Docusate Sodium (Colace) 100 mg TID PRN PRN PO CONSTIPATION Last administered on 04/07/17 20:44; Start 04/07/17 at 09:30 Fentanyl (Duragesic 75mcg/ Hr Patch) 1 patch Q3DAYS TD ; Start 04/08/17 at 09:00 ; Stop 04/08/17 at 09:00; Status DC Levothyroxine Sodium (Synthroid) 50 mcg DAILY07 PO Last administered on 06:26; Start 04/07/17 at 10:00 Methocarbamol (Robaxin) 500 mg Q8HRS PRN PO PAIN Last administered on 10:52; Start 04/07/17 at 09:30 Non-Formulary Medication 1 ea TID PO Last administered on 04/08/17 08:10; Start 04/07/17 at 11:00 Non-Formulary Medication 20 mg DAILY PO ; Start 04/08/17 at 09:00; Status UNV Pantoprazole Sodium (Protonix) 40 mg DAILYAC PO ; Start 04/07/17 at 10:00; Stop 04/07/17 at 10:00; Status DC Hydroxyzine HCl (Atarax) 25 mg PRN TID PRN PO ITCHING; Start 04/07/17 at 09:45 Levetiracetam (Keppra) 1,000 mg BID PO Last administered on 04/08/17 08:07; Start 04/07/17 at 10:30 Linaclotide (Linzess) 290 mcg DAILY07 PO Last administered on 04/08/17 06:26; Start 04/07/17 at 10:00 Non-Formulary Medication 10 mg HS PRN PO INSOMNIA; Start 04/07/17 at 09:30; Status UNV Ondansetron HCl (Zofran Odt) 4 mg PRN Q8HRS PRN PO NAUSEA Last administered on 04/07/17 22:31; Start 04/07/17 at 09:45 Famotidine (Pepcid) 20 mg DAILY06 PO Last administered on 04/08/17 06:26; Start 04/07/17 at 10:00 Risperidone (RisperDAL) 0.5 mg QHS PO Last administered on 04/07/17 20:35; Start 04/07/17 at 21:00 Venlafaxine HCl (Effexor) 50 mg TID PO Last administered on 04/08/17 08:08; Start 04/07/17 at 09:45 Verapamil HCl (Calan Sr) 180 mg QHS PO Last administered on 04/07/17 20:35; Start 04/07/17 at 21:00 Zolpidem Tartrate (Ambien) 5 mg QHS PO Last administered on 04/07/17 20:37; Start 04/07/17 at 21:00 Pantoprazole Sodium (Protonix) 40 mg DAILY06 PO Last administered on 04/08/17 06:26; Start 04/07/17 at 10:00 Aspirin (Ecotrin) 81 mg HS PO Last administered on 04/07/17 20:37; Start 04/07 at 21:00 Cetirizine HCl (ZyrTEC) 10 mg HS PO Last administered on 04/07/17 20:36; Start 04/07/17 at 21:00 Sumatriptan Succinate (Imitrex) 100 mg BID PRN PO MIGRAINE HEADACHE Last administered on 04/08/17 06:28; Start 04/07/17 at 21:00 Clonazepam (KlonoPIN) 1 mg TID PO Last administered on 04/08/17 08:07; Start 04/07/17 at 21:00 Fentanyl (Duragesic 75mcg/ Hr Patch) 1 patch Q3DAYS TD ; Start 04/10/17 at 09:00 Active Scripts Active Reported Oyster Shell Calcium +D Tablet (Calcium Carbonate/Vitamin D3) 1 Each Tablet 1 Each PO DAILY Lipitor (Atorvastatin Calcium) 10 Mg Tablet 1 Tab PO DAILY Adderall 20 Mg Tablet (Dextroamphetamine/Amphetamine) 20 Mg Tablet 20 Mg PO DAILY Effexor Xr (Venlafaxine Hcl) 150 Mg Cap.er.24h 1 Cap PO DAILY Celebrex (Celecoxib) 200 Mg Capsule 1 Cap PO DAILY Zofran (Ondansetron Hcl) 4 Mg Tablet 1 Tab PO TID PRN PRN Linzess (Linaclotide) 290 Mcg Capsule 290 Mcg PO DAILY Zyrtec (Cetirizine Hcl) 10 Mg Tablet 1 Tab PO DAILY Vitamin D (Cholecalciferol (Vitamin D3)) 10,000 Unit Capsule 50,000 Unit PO QWE Verapamil Er (Verapamil Hcl) 240 Mg Cap24h.pel 180 Mg PO HS Aspir 81 (Aspirin) 81 Mg Tablet.dr 1 Tab PO DAILY Klonopin (Clonazepam) 1 Mg Tablet 1 Tab PO TID PRN Hydroxyzine Hcl 25 Mg Tablet 25 Mg PO Q8HRS PRN Risperdal (Risperidone) 0.5 Mg Tablet 1 Tab PO QHS Ambien Cr (Zolpidem Tartrate) 12.5 Mg Tab.mphase 1 Tab PO QHS Levothyroxine Sodium 50 Mcg Tablet 1 Tab PO DAILY Keppra (Levetiracetam) 1,000 Mg Tablet 2,000 Mg PO DAILY Melatonin 5 Mg Capsule 10 Mg PO HS PRN FENTANYL 75mcg/hr (Fentanyl) 1 Each Patch.td72 1 Patch TP Q3DAYS Colace (Docusate Sodium) 100 Mg Capsule 1 Cap PO TID PRN PRN Robaxin (Methocarbamol) 500 Mg Tablet 1 Tab PO Q8HRS PRN Gabapentin 600 Mg Tablet 1,200 Mg PO BID Zantac (Ranitidine Hcl) 300 Mg Tablet 300 Mg PO DAILY06 Nexium Capsule (Esomeprazole Magnesium) 40 Mg Capsule.dr 1 Cap PO DAILY06 Elmiron (Pentosan Polysulfate Sodium) 100 Mg Capsule 1 Cap PO TID Vitals/I & O Vital Sign - Last 24 Hours 04/07/17 04/07/17 04/07/17 04/07/17 11:18 14:41 15:23 18:17 Temp 97.8 97.8 Pulse 90 Resp 20 B/P (MAP) 157/97 (117) Pulse Ox 95 96 O2 Delivery Room Air Room Air Room Air Room Air 04/07/17 04/07/17 04/07/17 04/07/17 19:00 20:00 20:29 20:35 Temp 98.4 98.4 Pulse 103 103 Resp 18 16 B/P (MAP) 146/83 (104) 146/83 Pulse Ox 97 O2 Delivery Room Air Room Air Room Air 04/07/17 04/07/17 04/07/17 04/08/17 22:31 23:00 23:34 00:15 Temp 98.7 98.7 Pulse 90 Resp 16 18 16 16 B/P (MAP) 135/86 (102) Pulse Ox 93 O2 Delivery Room Air Room Air BiPAP/CPAP 04/08/17 04/08/17 04/08/17 04/08/17 02:47 03:00 04:48 05:18 Temp 98.4 98.4 Pulse 94 Resp 16 18 18 18 B/P (MAP) 134/71 (92) Pulse Ox 96 O2 Delivery BiPAP/CPAP BiPAP/CPAP BiPAP/CPAP 04/08/17 04/08/17 04/08/17 04/08/17 06:26 07:00 07:30 07:35 Temp 97.8 97.8 Pulse 86 Resp 16 20 B/P (MAP) 123/84 (97) Pulse Ox 98 O2 Delivery BiPAP/CPAP Room Air Room Air Room Air 04/08/17 04/08/17 04/08/17 08:11 10:20 10:52 O2 Delivery Room Air Room Air Room Air Intake and Output 04/07/17 04/07/17 04/08/17 14:59 22:59 06:59 Intake Total 700 ml 600 ml Balance 700 ml 600 ml ARTURO CISSE MD April 08, 2017 11:09
[2017-04-08] MEDS ORDERED: fentaNYL PF VIAL 100 MCG/2 ML VIAL IV PRN (11:15)
[2017-04-08 15:00] VITALS: BP 118/82
[2017-04-08 19:00] VITALS: BP 113/75
[2017-04-08] MEDS: ASPIRIN ENTERIC COATED 81 MG TABLET.DR. PO SCH (22:39)
[2017-04-08] MEDS: VERAPAMIL SR 180 MG TABLET.ER. PO SCH (22:39)
[2017-04-08] MEDS: risperiDONE 0.25 MG TABLET. PO SCH (22:39)
[2017-04-08] MEDS: ZOLPIDEM 5 MG TABLET. PO SCH (22:40)
[2017-04-08] MEDS: ATORVASTATIN CALCIUM 10 MG TABLET. PO SCH (22:40)
[2017-04-08] MEDS: CETIRIZINE HCL 10 MG TABLET. PO SCH (22:40)
[2017-04-08] MEDS: DOCUSATE SODIUM 100 MG CAPSULE. PO PRN (22:55)
[2017-04-08 23:00] VITALS: BP 122/70
[2017-04-08] MEDS: SUMAtriptan SUCCINATE 25 MG TABLET PO PRN (23:37)
[2017-04-09 03:00] VITALS: BP 113/75
[2017-04-09 05:45] VITALS: BP 129/96
[2017-04-09] MEDS: FAMOTIDINE 20 MG TABLET. PO SCH (05:54)
[2017-04-09] MEDS: PANTOPRAZOLE 40 MG TABLET.DR. PO SCH (05:54)
[2017-04-09] MEDS: METHOCARBAMOL 500 MG TABLET PO PRN (05:54)
[2017-04-09] MEDS: LINACLOTIDE 145 MCG CAPSULE. PO SCH (05:54)
[2017-04-09] MEDS: oxyCODONE IR 5 MG TABLET PO PRN (05:55)
[2017-04-09] MEDS: LEVOTHYROXINE 50 MCG TABLET PO SCH (05:55)
[2017-04-09 07:00] VITALS: BP 124/83
[2017-04-09] MEDS: POTASSIUM CHLORIDE 20 MEQ TABLET.ER. PO SCH (08:00)
[2017-04-09] MEDS: clonazePAM 1 MG TABLET PO SCH ×2 (08:33→15:05)
[2017-04-09] MEDS: VENLAFAXINE 50 MG TABLET. PO SCH ×2 (08:33→15:05)
[2017-04-09] MEDS: CALCIUM CARB/VIT D3 500/200 TABLET. PO SCH (08:33)
[2017-04-09] MEDS: CELECOXIB 200 MG CAPSULE. PO SCH (08:33)
[2017-04-09] MEDS: CYCLOBENZAPRINE 10 MG TABLET. PO PRN (08:33)
[2017-04-09] MEDS: levETIRAcetam 500 MG TABLET PO SCH (08:33)
[2017-04-09] MEDS: GABAPENTIN 400 MG CAPSULE. PO SCH (08:33)
[2017-04-09] MEDS: ENOXAPARIN 40 MG/0.4 ML SYRINGE. SQ SCH (08:34)
[2017-04-09] MEDS: SUMAtriptan SUCCINATE 25 MG TABLET PO PRN (08:44)
--- NOTE | 2017-04-09 09:38 | PDOC ---
PROGRESS NOTES Subjective Subjective She is worried about how she she is going to deal with her pain when she goes home waiting for radiofrequency ablation therapy to work. Objective Objective Vital Signs Date Time Temp Pulse Resp B/P (MAP) Pulse Ox O2 Delivery O2 Flow Rate FiO2 04/09/17 07:00 98.3 93 20 124/83 (97) 94 Room Air 98.3 Intake and Output 04/09/17 07:00 Intake Total 2400 ml Balance 2400 ml Intake Oral 2400 ml # Voids 7 Physical Exam Physical Exam She is supine in bed and in no acute distress.She continues to be independent with her mobility at roller walker level.She is not interested in trigger point injections with steroids. Plan Plan of Care To substitute hydrocodone for breakthrough pain which she took at home.Agree with plans for discharge to home when medically stable. Comment Review of Relevant I have reviewed the following items mohsen (where applicable) has been applied. Medications Current Medications Fentanyl Citrate (Fentanyl 2ml Vial) 50 mcg PRN Q15MIN PRN IV PAIN GREATER THAN 3/10 Last administered on 04/06/17 22:43; Start 04/06/17 at 20:45; Stop at 11:11; Status DC Fentanyl Citrate (Fentanyl 2ml Vial) 50 mcg PRN Q2HR PRN IV PAIN Last administered on 04/08/17 10:20; Start 04/06/17 at 22:45; Stop 04/08/17 at 11:10 ; Status DC Gabapentin (Neurontin) 1,200 mg BID PO Last administered on 04/09/17 08:33; Start 04/07/17 at 09:00 Oxycodone HCl (Roxicodone) 5 mg PRN Q6HRS PRN PO PAIN Last administered on 04/09 05:55; Start 04/06/17 at 22:45 Potassium Chloride (Klor-Con) 20 meq 1X ONCE PO Last administered on 23:15; Start 04/06/17 at 23:00; Stop 04/06/17 at 23:01; Status DC Potassium Chloride (Klor-Con) 20 meq DAILYWBKFT PO Last administered on 08:00; Start 04/07/17 at 08:00 Magnesium Sulfate/ Dextrose 50 ml @ 25 mls/hr 1X ONCE IV Last administered on 04/06/17 23:32; Start 04/06/17 at 23:00; Stop 04/07/17 at 00:59; Status DC Diphenhydramine HCl (Benadryl) 25 mg PRN Q6HRS PRN PO ITCHING; Start 04/06/17 at 22:45 Zolpidem Tartrate (Ambien) 5 mg PRN QHS PRN PO INSOMNIA Last administered on 20:35; Start 04/06/17 at 22:45 Enoxaparin Sodium (Lovenox Per Pharmacy Prophylaxis Dosing) 1 each PRN DAILY PRN MC SEE COMMENTS; Start 04/06/17 at 23:00 Sumatriptan Succinate (Imitrex) 50 mg PRN Q2HR PRN PO MIGRAINE HEADACHE Last administered on 04/07/17 09:27; Start 04/06/17 at 22:45; Stop 04/07/17 at 14:50 ; Status DC Cyclobenzaprine HCl (Flexeril) 10 mg PRN Q6HRS PRN PO MUSCLE SPASMS Last administered on 04/09/17 08:33; Start 04/06/17 at 22:45 Enoxaparin Sodium (Lovenox 40mg Syringe) 40 mg DAILY SQ ; Start 04/07/17 at 09: 00; Stop 04/07/17 at 09:00; Status DC Enoxaparin Sodium (Lovenox 40mg Syringe) 40 mg Q12HR SQ Last administered on 08:34; Start 04/07/17 at 09:00 Aspirin (Ecotrin) 81 mg DAILYWBKFT PO ; Start 04/07/17 at 10:00; Stop 04/07/17 at 10:03; Status DC Atorvastatin Calcium (Lipitor) 10 mg QHS PO Last administered on 04/08/17 22: 40; Start 04/07/17 at 21:00 Calcium/Vitamin D (Oscal D 500mg/ 200uts) 1 tab DAILY PO Last administered on 08:33; Start 04/07/17 at 10:00 Celecoxib (CeleBREX) 200 mg DAILY PO Last administered on 04/09/17 08:33; Start 04/07/17 at 10:00 Cetirizine HCl (ZyrTEC) 10 mg DAILY PO ; Start 04/07/17 at 10:00; Stop 04/07/17 at 10:03; Status DC Clonazepam (KlonoPIN) 1 mg TID PRN PO ANXIETY; Start 04/07/17 at 09:30; Stop at 18:27; Status DC Docusate Sodium (Colace) 100 mg TID PRN PRN PO CONSTIPATION Last administered on 04/08/17 22:55; Start 04/07/17 at 09:30 Fentanyl (Duragesic 75mcg/ Hr Patch) 1 patch Q3DAYS TD ; Start 04/08/17 at 09:00 ; Stop 04/08/17 at 09:00; Status DC Levothyroxine Sodium (Synthroid) 50 mcg DAILY07 PO Last administered on 05:55; Start 04/07/17 at 10:00 Methocarbamol (Robaxin) 500 mg Q8HRS PRN PO PAIN Last administered on 05:54; Start 04/07/17 at 09:30 Non-Formulary Medication 1 ea TID PO Last administered on 04/08/17 22:41; Start 04/07/17 at 11:00 Non-Formulary Medication 20 mg DAILY PO ; Start 04/08/17 at 09:00; Status UNV Pantoprazole Sodium (Protonix) 40 mg DAILYAC PO ; Start 04/07/17 at 10:00; Stop 04/07/17 at 10:00; Status DC Hydroxyzine HCl (Atarax) 25 mg PRN TID PRN PO ITCHING; Start 04/07/17 at 09:45 Levetiracetam (Keppra) 1,000 mg BID PO Last administered on 04/09/17 08:33; Start 04/07/17 at 10:30 Linaclotide (Linzess) 290 mcg DAILY07 PO Last administered on 04/09/17 05:54; Start 04/07/17 at 10:00 Non-Formulary Medication 10 mg HS PRN PO INSOMNIA; Start 04/07/17 at 09:30; Status UNV Ondansetron HCl (Zofran Odt) 4 mg PRN Q8HRS PRN PO NAUSEA Last administered on 04/07/17 22:31; Start 04/07/17 at 09:45 Famotidine (Pepcid) 20 mg DAILY06 PO Last administered on 04/09/17 05:54; Start 04/07/17 at 10:00 Risperidone (RisperDAL) 0.5 mg QHS PO Last administered on 04/08/17 22:39; Start 04/07/17 at 21:00 Venlafaxine HCl (Effexor) 50 mg TID PO Last administered on 04/09/17 08:33; Start 04/07/17 at 09:45 Verapamil HCl (Calan Sr) 180 mg QHS PO Last administered on 04/08/17 22:39; Start 04/07/17 at 21:00 Zolpidem Tartrate (Ambien) 5 mg QHS PO Last administered on 04/08/17 22:40; Start 04/07/17 at 21:00 Pantoprazole Sodium (Protonix) 40 mg DAILY06 PO Last administered on 04/09/17 05:54; Start 04/07/17 at 10:00 Aspirin (Ecotrin) 81 mg HS PO Last administered on 04/08/17 22:39; Start 04/07 at 21:00 Cetirizine HCl (ZyrTEC) 10 mg HS PO Last administered on 04/08/17 22:40; Start 04/07/17 at 21:00 Sumatriptan Succinate (Imitrex) 100 mg BID PRN PO MIGRAINE HEADACHE Last administered on 04/08/17 06:28; Start 04/07/17 at 21:00; Stop 04/08/17 at 22:56 ; Status DC Clonazepam (KlonoPIN) 1 mg TID PO Last administered on 04/09/17 08:33; Start 04/07/17 at 21:00 Fentanyl (Duragesic 75mcg/ Hr Patch) 1 patch Q3DAYS TD ; Start 04/10/17 at 09:00 Fentanyl Citrate (Fentanyl 2ml Vial) 25 mcg PRN Q2HR PRN IV PAIN; Start at 11:15; Stop 04/08/17 at 15:05; Status DC Fentanyl Citrate (Fentanyl 2ml Vial) 25 mcg PRN Q2HR PRN IV PAIN Last administered on 04/08/17 22:37; Start 04/08/17 at 11:15 Sumatriptan Succinate (Imitrex) 100 mg PRN BID PRN PO MIGRAINE HEADACHE Last administered on 04/09/17t 08:44; Start 04/08/17 at 23:00 Active Scripts Active Reported Oyster Shell Calcium +D Tablet (Calcium Carbonate/Vitamin D3) 1 Each Tablet 1 Each PO DAILY Lipitor (Atorvastatin Calcium) 10 Mg Tablet 1 Tab PO DAILY Adderall 20 Mg Tablet (Dextroamphetamine/Amphetamine) 20 Mg Tablet 20 Mg PO DAILY Effexor Xr (Venlafaxine Hcl) 150 Mg Cap.er.24h 1 Cap PO DAILY Celebrex (Celecoxib) 200 Mg Capsule 1 Cap PO DAILY Zofran (Ondansetron Hcl) 4 Mg Tablet 1 Tab PO TID PRN PRN Linzess (Linaclotide) 290 Mcg Capsule 290 Mcg PO DAILY Zyrtec (Cetirizine Hcl) 10 Mg Tablet 1 Tab PO DAILY Vitamin D (Cholecalciferol (Vitamin D3)) 10,000 Unit Capsule 50,000 Unit PO QWE Verapamil Er (Verapamil Hcl) 240 Mg Cap24h.pel 180 Mg PO HS Aspir 81 (Aspirin) 81 Mg Tablet.dr 1 Tab PO DAILY Klonopin (Clonazepam) 1 Mg Tablet 1 Tab PO TID PRN Hydroxyzine Hcl 25 Mg Tablet 25 Mg PO Q8HRS PRN Risperdal (Risperidone) 0.5 Mg Tablet 1 Tab PO QHS Ambien Cr (Zolpidem Tartrate) 12.5 Mg Tab.mphase 1 Tab PO QHS Levothyroxine Sodium 50 Mcg Tablet 1 Tab PO DAILY Keppra (Levetiracetam) 1,000 Mg Tablet 2,000 Mg PO DAILY Melatonin 5 Mg Capsule 10 Mg PO HS PRN FENTANYL 75mcg/hr (Fentanyl) 1 Each Patch.td72 1 Patch TP Q3DAYS Colace (Docusate Sodium) 100 Mg Capsule 1 Cap PO TID PRN PRN Robaxin (Methocarbamol) 500 Mg Tablet 1 Tab PO Q8HRS PRN Gabapentin 600 Mg Tablet 1,200 Mg PO BID Zantac (Ranitidine Hcl) 300 Mg Tablet 300 Mg PO DAILY06 Nexium Capsule (Esomeprazole Magnesium) 40 Mg Capsule.dr 1 Cap PO DAILY06 Elmiron (Pentosan Polysulfate Sodium) 100 Mg Capsule 1 Cap PO TID Vitals/I & O Vital Sign - Last 24 Hours 04/08/17 04/08/17 04/08/1719/17 10:20 10:52 11:00 12:41 Temp 98.4 98.4 Pulse 90 Resp 20 B/P (MAP) 148/84 (105) Pulse Ox 94 O2 Delivery Room Air Room Air Room Air Room Air 04/08/17 04/08/17 04/08/17 04/08/17 15:00 15:15 17:45 18:53 Temp 98.4 98.4 Pulse 82 Resp 20 B/P (MAP) 118/82 (94) Pulse Ox 94 O2 Delivery Room Air Room Air Room Air Room Air 04/08/17 04/08/17 04/08/17 04/08/17 19:00 19:45 19:55 22:37 Temp 98.3 98.3 Pulse 87 Resp 18 B/P (MAP) 113/75 (88) Pulse Ox 91 92 91 O2 Delivery Room Air Room Air Room Air Room Air 04/08/17 04/08/17 04/08/17 04/09/17 22:39 23:00 23:10 03:00 Temp 98.3 98.3 98.3 98.3 Pulse 87 80 87 Resp 18 18 B/P (MAP) 113/75 122/70 (87) 113/75 (88) Pulse Ox 92 92 91 O2 Delivery Room Air Room Air Room Air 04/09/17 04/09/17 04/09/17 05:45 05:55 07:00 Temp 97.6 98.3 97.6 98.3 Pulse 83 93 Resp 19 20 B/P (MAP) 129/96 (107) 124/83 (97) Pulse Ox 94 91 94 O2 Delivery Room Air Room Air Room Air Intake and Output 04/08/17 04/08/17 04/09/17 15:00 23:00 07:00 Intake Total 1800 ml 600 ml Balance 1800 ml 600 ml WILD GOLDSMITH MD April 09, 2017 09:38
[2017-04-09] MEDS: HYDROcodone/APAP 10/325 1 TAB TABLET PO PRN ×2 (10:20→15:05)
[2017-04-09] MEDS: ELMIRON 100 MG PO SCH ×2 (10:20→15:04)
[2017-04-09 11:00] VITALS: BP 145/84
[2017-04-09] MEDS ORDERED: CYCL10TA2 PO (14:08)
[2017-04-09] MEDS ORDERED: SUMA25TA3 PO (14:08)
[2017-04-09] MEDS ORDERED: HYDR-2672 PO (14:08)
--- NOTE | 2017-04-09 23:39 | DS ---
DATE OF DISCHARGE: 04/09/2017 DISCHARGE DIAGNOSES: 1. [id number] back pain, not resolved completely. 2. Migraine headaches, resolved with Imitrex. 3. Obstructive sleep apnea on CPAP. 4. Obesity, morbid, BMI of 43. 5. Hypertension, stable. 6. Nonepileptic seizures, on Keppra. 7. Fibromyalgia. BRIEF HOSPITAL COURSE: A 46-year-old female patient admitted to the hospital for [id number] back pain and the patient is supposed to get intra-articular injections at pain clinic; however, she did not get ____. Her pain is intractable in nature and she was admitted to the hospital and started on fentanyl patch and IV fentanyl with Percocet. Her symptoms improved and also she was evaluated by Dr. Grace, who recommended her to come to the rehab facility after she sees the pain doctor. She is not interested to get trigger point injections and steroids. She would like to continue follow up with the pain clinic in [place]. Also, she was evaluated by Dr. Rogers and her Imitrex dose has been increased to 100 mg. Today, she deemed clinically stable enough to go home and follow up with the primary care doctor, Neurology and Dr. Grace, all new scripts provided to the patient. DISCHARGE EXAMINATION: GENERAL: Alert, oriented x 3. HEART: S1, S2 present. LUNGS: Anterior chest clear. ABDOMEN: Soft, nontender, no organomegaly. EXTREMITIES: No edema. DISCHARGE DISPOSITION: Home. DISCHARGE CONDITION: Stable. FOLLOWUP: With Dr. Grace and Dr. Rogers as scheduled. Total time spent for discharge is 31 minutes for the patient education, counseling, and coordination of care. ARTURO CISSE MD DR: HUY/silas JOB#: [id number] / [id number]
[2017-04-10] MEDS ORDERED: fentaNYL 75MCG/HR PATCH 1 PATCH PATCH.TD72 TD SCH (09:00)
== END 2017-04-09 15:30 | disposition home or self-care (01) | DRG 552 ==
LOC: ER 19:51 → 4 NORTH 21:40
PROVIDERS: ADMIT Internal Medicine; ATTEND Internal Medicine
DX: M47.896 Other spondylosis, lumbar region (principal); Z68.41 Body mass index [BMI] 40.0-44.9, adult; G43.909 Migraine, unspecified, not intractable, without status migrainosus; E03.9 Hypothyroidism, unspecified; E66.01 Morbid (severe) obesity due to excess calories; E87.6 Hypokalemia; G40.909 Epilepsy, unspecified, not intractable, without status epilepticus; G47.33 Obstructive sleep apnea (adult) (pediatric); G89.4 Chronic pain syndrome; Z88.8 Allergy status to other drugs, medicaments and biological substances; M17.0 Bilateral primary osteoarthritis of knee; I10 Essential (primary) hypertension; K21.9 Gastro-esophageal reflux disease without esophagitis; K58.9 Irritable bowel syndrome, unspecified; F32.9 Major depressive disorder, single episode, unspecified; M79.7 Fibromyalgia; Z74.01 Bed confinement status; Z79.891 Long term (current) use of opiate analgesic; Z90.49 Acquired absence of other specified parts of digestive tract; Z90.710 Acquired absence of both cervix and uterus; Z88.6 Allergy status to analgesic agent; Z88.4 Allergy status to anesthetic agent; Z88.2 Allergy status to sulfonamides
CPT/HCPCS: 36415; 80053; 85027; 85651; 86140; 96374; 96376; J1650; J3010; J7060; Q0162; 97116; 97530; 99285-25

== ENCOUNTER → 2019-06-15 | Outpatient (CLI) | payer MEDICARE, OTHER ==
[~2019-06-15] MED LIST: ASPI-482 PO; ATOR10TA PO; CALC-95 PO; CELE200C PO; CETI10TA22 PO; CHOL100017 PO; CLON1TAB PO; CYCL10TA2 PO; DEXT20TA2 PO; DOCU-109 PO; ESOM40CA PO; FENT1PAT19 TP; GABA600T7 PO; HYDR-2769 PO; HYDR25TA PO; LEVE100020 PO; LEVO50TA5 PO; LINZESS290 MCG PO; MELA5CAP PO; METH-37 PO; ONDA4TAB7 PO; PANT40TA77 PO; PENT100C PO; RANI300T3 PO; RISP0.5T24 PO; SUMA25TA3 PO; VENL150C PO; VERA240C2 PO; ZOLP12.52 PO
[2019-06-15 16:16] LABS: BASO # 0.1 x10^3/uL (0.0-0.2); BASO % 1 % (0-3); EOS # 0.2 x10^3/uL (0.0-0.7); EOS % 2 % (0-3); HEMATOCRIT 42.4 % (36.0-47.0); HEMOGLOBIN 14.5 g/dL (12.0-15.5); LYMPH # 2.8 x10^3/uL (1.0-4.8); LYMPH % 40 % (24-48); MEAN CORPUSCULAR HEMOGLOBIN 29 pg (25-35); MEAN CORPUSCULAR HGB CONC 34 g/dL (31-37); MEAN CORPUSCULAR VOLUME 86 fL (79-100); MONO # 0.6 x10^3/uL (0.0-1.1); MONO % 8 % (0-9); NEUT # 3.4 x10^3/uL (1.8-7.7); NEUT % 49 % (31-73); PLATELET COUNT 287 x10^3/uL (140-400); RED BLOOD COUNT 4.94 x10^6/uL (3.50-5.40); RED CELL DISTRIBUTION WIDTH 13.2 % (11.5-14.5)
== END | disposition home or self-care (01) ==
LOC: SURGPAT 12:35
PROVIDERS: ATTEND Obstetrics & Gynecology
DX: Z01.818 Encounter for other preprocedural examination (principal); Z88.5 Allergy status to narcotic agent; Z88.8 Allergy status to other drugs, medicaments and biological substances
CPT/HCPCS: 36415; 85025

== ENCOUNTER → 2021-04-03 | Day surgery (SDC) | payer MEDICARE, OTHER ==
[~2021-04-03] VITALS: Ht 172.7 cm; Wt 120.0 kg
[~2021-04-03] MED LIST changes: -CETI10TA22 PO; +CETI10TA74 PO; +IV RINGERS,LACTATED 1000ML 1,000 ML IV SCH; +LIDOCAINE 2% PF 5 ML VIAL. ONE; +PROPOFOL 10 MG/ML (20ML) VIAL. IV ONE
[2021-04-03 08:24] VITALS: BP 160/93
--- NOTE | 2021-04-03 09:38 | CONS ---
DATE OF CONSULTATION: 04/03/2021 REFERRING PHYSICIAN: Dr. Maksim Guzman. REASON FOR CONSULTATION: Colorectal screening diffuse abdominal pain, history of adhesions. HISTORY OF PRESENT ILLNESS: A 50-year-old female with past medical history is significant for irritable bowel syndrome, hyperlipidemia, hypothyroidism, chronic pain, fibromyalgia, who is seen for colonoscopy. 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 Previous small bowel series was unhelpful for additional pathology. She has previously had cholecystectomy, hernia repair, and hysterectomy. There is no family history of colon cancer or colon polyps. She is otherwise without additional complaints. PAST MEDICAL HISTORY: Hypothyroidism, hyperlipidemia, chronic pain. ALLERGIES: See list. MAR see list. PAST SURGICAL HISTORY: Status post cholecystectomy, hernia repair and hysterectomy. REVIEW OF SYSTEMS: Per records. PHYSICAL EXAMINATION: GENERAL: Reveals a well-nourished, well-developed female. VITAL SIGNS: Temperature 97, pulse 70, respiratory rate is 22. LUNGS: Clear. CARDIOVASCULAR: Reveals an S1, S2, without S3, S4 or appreciable murmur. ABDOMEN: Revealed a soft abdomen with mild diffuse tenderness, multiple surgical incisions. EXTREMITIES: Reveal no cyanosis, clubbing or edema. ASSESSMENT: Diffuse abdominal pain. Colorectal screening with history of adhesions is warranted at this time. Risks and benefits of procedure including the risk of hemorrhage and perforation, requiring operation were discussed. The patient is willing to proceed at this time. IZZY BUCHANAN: Sue TID: [id number]
[2021-04-03 09:58] VITALS: BP 122/72
== END | disposition home or self-care (01) ==
LOC: ENDOS 07:39
PROVIDERS: ATTEND Internal Medicine Gastroenterology
DX: R10.84 Generalized abdominal pain (principal); K58.9 Irritable bowel syndrome, unspecified; K64.0 First degree hemorrhoids; K63.89 Other specified diseases of intestine; E66.9 Obesity, unspecified; E78.00 Pure hypercholesterolemia, unspecified; I10 Essential (primary) hypertension; K21.9 Gastro-esophageal reflux disease without esophagitis; E03.9 Hypothyroidism, unspecified; M19.90 Unspecified osteoarthritis, unspecified site; F32.9 Major depressive disorder, single episode, unspecified; G47.30 Sleep apnea, unspecified; Z85.828 Personal history of other malignant neoplasm of skin; Z90.49 Acquired absence of other specified parts of digestive tract; Z90.710 Acquired absence of both cervix and uterus; Z98.890 Other specified postprocedural states; Z79.82 Long term (current) use of aspirin; Z79.899 Other long term (current) drug therapy; Z88.1 Allergy status to other antibiotic agents; Z88.2 Allergy status to sulfonamides; Z88.5 Allergy status to narcotic agent; Z88.8 Allergy status to other drugs, medicaments and biological substances; Z20.822 Contact with and (suspected) exposure to COVID-19
CPT/HCPCS: 45378; 87426; J2704